=== PATIENT | male | born 1965 | race Caucasian/White ===

== ENCOUNTER 2020-02-20 19:51 | Outpatient (REF) | payer MEDICAID, SELFPAY ==
[2020-02-20 20:44] LABS: BUN 19 mg/dL (7-18); CREATININE 1.06 mg/dL (0.70-1.30); Calcium 9.4 mg/dL (8.5-10.1); Chloride 102 mmol/L (98-107); Glucose 111 mg/dL (74-106); Potassium 4.1 mmol/L (3.5-5.1); Sodium 139 mmol/L (136-145)
== END 2020-02-20 20:11 ==
LOC: NCHCN 19:51
PROVIDERS: PCP Internal Medicine; Visit Provider Internal Medicine
DX: I10 Essential (primary) hypertension (principal)
CPT/HCPCS: 80048

== ENCOUNTER 2020-04-13 13:47 | Outpatient (REF) | payer MEDICAID, SELFPAY ==
[2020-04-13 21:06] LABS: HCT 40.4 % (40.0-50.0); HGB 13.9 g/dL (13.5-17.5); MCH 30.1 pg (27.0-33.0); MCHC 34.4 % (32.0-36.0); MCV 87.4 fL (80-95); MPV 10.1 fL (8.0-11.0); Platelet Count 347 10^3/uL (130-400); RBC 4.62 10^6/uL (4.36-5.78); RDW 12.4 % (11.8-14.1); RDW-SD 39.5 fL; WBC 9.02 10^3/uL (4.4-10.8)
[2020-04-13 21:33] LABS: ALT 27 U/L (16-63); AST 19 U/L (15-37); Albumin 3.9 g/dL (3.4-5.0); Alkaline Phosphatase 78 U/L (46-116); Anion Gap 11.3 mmol/L (3-11); BUN 17 mg/dL (7-18); Bilirubin, Total 0.3 mg/dL (0.2-1.0); CO2 24.7 mmol/L (21.0-32.0); Calcium 9.2 mg/dL (8.5-10.1); Chloride 103 mmol/L (98-107); Glucose 100 mg/dL (74-106); Potassium 4.3 mmol/L (3.5-5.1); Sodium 139 mmol/L (136-145); Total Protein 7.3 g/dL (6.4-8.2)
== END 2020-04-13 13:48 | disposition home or self-care (01) ==
LOC: NCHCN 13:47
PROVIDERS: PCP Internal Medicine; Visit Provider Internal Medicine
DX: C09.9 Malignant neoplasm of tonsil, unspecified (principal); I10 Essential (primary) hypertension
CPT/HCPCS: 80053; 85027

== ENCOUNTER 2020-05-28 02:58 | Outpatient (RCR) | payer MEDICAID, SELFPAY ==
[2020-05-01] MEDS: Normal Saline Flush 10 ML SYR IVP (11:54)
[2020-05-01 11:57] LABS: Abs Immature Grans 0.04 10^3/uL (0.0-0.06); Absolute Basophil Count 0.09 10^3/uL (0.0-0.2); Absolute Eosinophil Count 0.52 10^3/uL (0.0-0.7); Absolute Lymphocyte Count 3.75 10^3/uL (1.2-3.4); Absolute Monocyte Count 0.55 10^3/uL (0.1-0.8); Absolute Neutrophil Count 4.97 10^3/uL (1.2-6.7); Basophils % 0.9; Eosinophils % 5.2; HCT 42.8 % (40.0-50.0); HGB 14.6 g/dL (13.5-17.5); Immature Grans % 0.4; Lymphocytes % 37.8; MCH 30.7 pg (27.0-33.0); MCHC 34.1 % (32.0-36.0); MCV 90.1 fL (80-95); MPV 9.5 fL (8.0-11.0); Monocytes % 5.5; Neutrophils % 50.2; Nucleated RBC 0 %; Platelet Count 357 10^3/uL (130-400); RBC 4.75 10^6/uL (4.36-5.78); RDW 12.3 % (11.8-14.1); RDW-SD 40.1 fL; WBC 9.92 10^3/uL (4.4-10.8)
[2020-05-01 12:11] LABS: ALT 33 U/L (16-63); AST 20 U/L (15-37); Albumin 4.1 g/dL (3.4-5.0); Alkaline Phosphatase 93 U/L (46-116); Anion Gap 7.7 mmol/L (3-11); BUN 18 mg/dL (7-18); Bilirubin, Total 0.3 mg/dL (0.2-1.0); CO2 30.3 mmol/L (21.0-32.0); CREATININE 1.3 mg/dL (0.70-1.30); Calcium 9.2 mg/dL (8.5-10.1); Chloride 101 mmol/L (98-107); Estimated GFR 57.31 (mL/min/1.73m2); Glucose 135 mg/dL (74-106); Potassium 3.6 mmol/L (3.5-5.1); Sodium 139 mmol/L (136-145); Total Protein 8.1 g/dL (6.4-8.2)
[2020-05-07 09:01] LABS: Abs Immature Grans 0.05 10^3/uL (0.0-0.06); Absolute Basophil Count 0.04 10^3/uL (0.0-0.2); Absolute Eosinophil Count 0.12 10^3/uL (0.0-0.7); Absolute Lymphocyte Count 2.64 10^3/uL (1.2-3.4); Absolute Monocyte Count 0.89 10^3/uL (0.1-0.8); Absolute Neutrophil Count 7.41 10^3/uL (1.2-6.7); Basophils % 0.4; Eosinophils % 1.1; HGB 14.8 g/dL (13.5-17.5); Immature Grans % 0.4; Lymphocytes % 23.7; MCH 30.9 pg (27.0-33.0); MCHC 35.2 % (32.0-36.0); MCV 87.7 fL (80-95); MPV 9.6 fL (8.0-11.0); Neutrophils % 66.4; Nucleated RBC 0 %; Platelet Count 374 10^3/uL (130-400); RBC 4.79 10^6/uL (4.36-5.78); RDW 11.7 % (11.8-14.1); WBC 11.16 10^3/uL (4.4-10.8)
[2020-05-07 09:06] LABS: ALT 24 U/L (16-63); AST 15 U/L (15-37); Albumin 3.8 g/dL (3.4-5.0); Alkaline Phosphatase 74 U/L (46-116); Anion Gap 8.4 mmol/L (3-11); BUN 30 mg/dL (7-18); Bilirubin, Total 0.9 mg/dL (0.2-1.0); CO2 29.6 mmol/L (21.0-32.0); CREATININE 1.7 mg/dL (0.70-1.30); Calcium 9.3 mg/dL (8.5-10.1); Chloride 96 mmol/L (98-107); Estimated GFR 42.05 (mL/min/1.73m2); Glucose 152 mg/dL (74-106); Potassium 3.5 mmol/L (3.5-5.1); Sodium 134 mmol/L (136-145); Total Protein 7.8 g/dL (6.4-8.2)
[2020-05-07] MEDS: Normal Saline Flush 10 ML SYR IVP (09:27)
[2020-05-14 09:54] LABS: Abs Immature Grans 0.03 10^3/uL (0.0-0.06); Absolute Basophil Count 0.04 10^3/uL (0.0-0.2); Absolute Eosinophil Count 0.06 10^3/uL (0.0-0.7); Absolute Monocyte Count 0.68 10^3/uL (0.1-0.8); Absolute Neutrophil Count 7.51 10^3/uL (1.2-6.7); Basophils % 0.4; Eosinophils % 0.6; HCT 35.9 % (40.0-50.0); HGB 12.8 g/dL (13.5-17.5); Immature Grans % 0.3; Lymphocytes % 12.6; MCHC 35.7 % (32.0-36.0); MCV 86.9 fL (80-95); MPV 9.4 fL (8.0-11.0); Monocytes % 7.1; Nucleated RBC 0 %; Platelet Count 284 10^3/uL (130-400); RBC 4.13 10^6/uL (4.36-5.78); RDW 11.8 % (11.8-14.1); RDW-SD 37.8 fL; WBC 9.52 10^3/uL (4.4-10.8)
[2020-05-14] MEDS: Normal Saline Flush 10 ML SYR IVP (10:09)
[2020-05-14 11:18] LABS: ALT 29 U/L (16-63); AST 19 U/L (15-37); Albumin 3.6 g/dL (3.4-5.0); Alkaline Phosphatase 69 U/L (46-116); Anion Gap 9.2 mmol/L (3-11); BUN 29 mg/dL (7-18); Bilirubin, Total 0.3 mg/dL (0.2-1.0); CO2 27.8 mmol/L (21.0-32.0); CREATININE 1.3 mg/dL (0.70-1.30); Calcium 9.2 mg/dL (8.5-10.1); Chloride 103 mmol/L (98-107); Estimated GFR 57.31 (mL/min/1.73m2); Glucose 123 mg/dL (74-106); Magnesium 1.8 mg/dL (1.8-2.4); Potassium 3.7 mmol/L (3.5-5.1); Sodium 140 mmol/L (136-145); Total Protein 7.3 g/dL (6.4-8.2)
[2020-05-21] MEDS: Normal Saline Flush 10 ML SYR IVP (09:29)
[2020-05-21 09:35] LABS: Abs Immature Grans 0.02 10^3/uL (0.0-0.06); Absolute Basophil Count 0.03 10^3/uL (0.0-0.2); Absolute Eosinophil Count 0.06 10^3/uL (0.0-0.7); Absolute Monocyte Count 0.43 10^3/uL (0.1-0.8); Absolute Neutrophil Count 4.79 10^3/uL (1.2-6.7); Basophils % 0.5; Eosinophils % 0.9; HCT 33.2 % (40.0-50.0); HGB 11.8 g/dL (13.5-17.5); Immature Grans % 0.3; Lymphocytes % 17.1; MCH 31.1 pg (27.0-33.0); MCHC 35.5 % (32.0-36.0); MCV 87.6 fL (80-95); Monocytes % 6.7; Neutrophils % 74.5; Nucleated RBC 0 %; Platelet Count 248 10^3/uL (130-400); RBC 3.79 10^6/uL (4.36-5.78); RDW 11.6 % (11.8-14.1); RDW-SD 37.1 fL; WBC 6.43 10^3/uL (4.4-10.8)
[2020-05-21 09:55] LABS: ALT 25 U/L (16-63); AST 14 U/L (15-37); Albumin 3.4 g/dL (3.4-5.0); Alkaline Phosphatase 77 U/L (46-116); BUN 27 mg/dL (7-18); Bilirubin, Total 0.4 mg/dL (0.2-1.0); CREATININE 1.3 mg/dL (0.70-1.30); Calcium 8.8 mg/dL (8.5-10.1); Chloride 100 mmol/L (98-107); Estimated GFR 57.31 (mL/min/1.73m2); Glucose 139 mg/dL (74-106); Magnesium 1.7 mg/dL (1.8-2.4); Potassium 3.8 mmol/L (3.5-5.1); Sodium 139 mmol/L (136-145); Total Protein 7.3 g/dL (6.4-8.2)
[2020-05-28 09:30] LABS: Abs Immature Grans 0.01 10^3/uL (0.0-0.06); Absolute Basophil Count 0.02 10^3/uL (0.0-0.2); Absolute Eosinophil Count 0.05 10^3/uL (0.0-0.7); Absolute Lymphocyte Count 0.74 10^3/uL (1.2-3.4); Absolute Monocyte Count 0.33 10^3/uL (0.1-0.8); Absolute Neutrophil Count 2.63 10^3/uL (1.2-6.7); Basophils % 0.5; Eosinophils % 1.3; HCT 29.5 % (40.0-50.0); HGB 10.5 g/dL (13.5-17.5); Immature Grans % 0.3; Lymphocytes % 19.6; MCH 31.5 pg (27.0-33.0); MCHC 35.6 % (32.0-36.0); MCV 88.6 fL (80-95); MPV 8.9 fL (8.0-11.0); Monocytes % 8.7; Neutrophils % 69.6; Nucleated RBC 0 %; Platelet Count 185 10^3/uL (130-400); RBC 3.33 10^6/uL (4.36-5.78); RDW 11.7 % (11.8-14.1); RDW-SD 36.7 fL; WBC 3.78 10^3/uL (4.4-10.8)
[2020-05-28] MEDS: Normal Saline Flush 10 ML SYR IVP (09:39)
[2020-05-28 09:42] LABS: ALT 27 U/L (16-63); AST 17 U/L (15-37); Albumin 3.4 g/dL (3.4-5.0); Alkaline Phosphatase 73 U/L (46-116); Anion Gap 4.4 mmol/L (3-11); BUN 26 mg/dL (7-18); Bilirubin, Total 0.4 mg/dL (0.2-1.0); CO2 32.6 mmol/L (21.0-32.0); CREATININE 1.2 mg/dL (0.70-1.30); Calcium 8.4 mg/dL (8.5-10.1); Chloride 103 mmol/L (98-107); Glucose 116 mg/dL (74-106); Magnesium 1.4 mg/dL (1.8-2.4); Sodium 140 mmol/L (136-145); Total Protein 7.1 g/dL (6.4-8.2)
== END 2020-05-30 23:59 | disposition home or self-care (01) ==
LOC: INF 02:58
PROVIDERS: PCP Internal Medicine; Visit Provider Internal Medicine Hematology & Oncology
DX: C09.9 Malignant neoplasm of tonsil, unspecified (principal)
CPT/HCPCS: 36415; 36591; 80053; 83735; 85025

== ENCOUNTER 2020-06-10 19:08 | Observation (INO) | payer MEDICAID, SELFPAY ==
[2020-06-10 19:15] VITALS: BP 144/80; PULSE 96; RESP 20; TEMP 37.7; O2SAT 99
--- NOTE | 2020-06-10 19:15 | DI.CT_ITS ---
EXAM: CT NECK CHEST ABD PEL W CLINICAL HISTORY: fever, cough, throat pain and vomit TECHNIQUE: IV contrast: Omnipaque 350-125 mL. Oral contrast: None COMPARISON: No exams were available for comparison FINDINGS: CT SCAN SOFT TISSUES NECK WITH IV CONTRAST: Visualized paranasal sinuses are clear. Left frontal sinus is not developed. Visualized lung apices are clear. The tissues of nasopharynx are symmetrical. Uvula is midline. Uniform thickening of the epiglottis is noted which is most probably secondary to radiation treatment. There is no evidence of abnormal m ass in the olvin and hypopharynx. Both submandibular glands appear unremarkable as do the parotid glan ds. Vocal cords are difficult to evaluate as they are abducted. The aryepiglottic folds appear symmetric al. Subglottic airway appears unremarkable. Visualized thyroid gland appears unremarkable. There is no significant lymphadenopathy evident on either side of the neck nor in the supraclavicular regions. IMPRESSION: Thickening of the epiglottis is noted, most probably related to the radiation. There are no distinct masses nor lymphadenopathy in the neck evident. CT CHEST WITH IV CONTRAST : Lungs: There are no pulmonary infiltrates nor pleural effusions. There are no ominous pulmonary nodu les. No new significant focal findings in the trachea and mainstem bronchi. Mediastinum : There is circumferential thickening of the entire wall of the esophagus. This may be r elated to esophagitis versus reflux disease. Requires endoscopy. Distal tip of the Port-A-Cath is i n the lower SVC at the RA junction. There is no hilar nor mediastinal adenopathy. There is no subca rinal adenopathy. Visualized thyroid gland appears unremarkable. There is no axillary adenopathy. There is no supraclavicular adenopathy. Cardiac : Heart size is normal. There is no pericardial effusion. Caliber thoracic aorta is within normal limits. Osseous: There are no lytic osseous lesions identified in the chest. CT SCAN ABDOMEN PELVIS WITH IV CONTRAST : There is a left of center anterior abdominal wall gastric PEG. This is in satisfactory position. No inflammatory change at along its course nor free air. There is no ascites. There are 2 small benign-appearing hypodensities in the right hepatic lobe whic h are either cysts or hemangiomas. Both measure approximately 4 millimeters. There also a few simil ar benign-appearing findings in the left lobe. In addition, there is a cyst in the right hepatic lob e at the gallbladder fossa level which measures 12 x 9 millimeters. There is no obvious gallbladder pathology nor dilatation of the biliary tree, both intra and extrahep atic. The pancreas appears unremarkable. Spleen size is upper normal. There are no splenic lesions. The splenic and portal veins are patent. Right adrenal gland appears unremarkable. However, there is thickening and nodularity in the left ad renal gland including a 1.7 by 1.5 cm hypodense nodule in the left adrenal gland. There are no signi ficant focal findings in the kidneys. No hydronephrosis. No hydroureter. No obvious abnormality in the urinary bladder. The abdominal aorta is not enlarged. There are few small non-specific para-aortic lymph nodes, the l argest of which measures 7 x 5 millimeters located left of the aorta. There is no gross lymphadenopa thy. No intrapelvic nor inguinal adenopathy. In the pelvis the prostate and seminal vesicles appear unremarkable. There is sigmoid diverticulosis . There is subtle streaking around the sigmoid just above the urinary bladder consistent with subtle diverticulitis. There is no abscess. There is no gas within the urinary bladder lumen to suggest f istulous communication. The appendix contains hyperdense material but there is no evidence of acute appendicitis at this time. No bowel obstruction. Osseous: There are bilateral pars interarticularis defects at L5 level with an element of anterolisth esis of L5 upon S1. However, there are no discrete focal lytic nor blastic osseous lesions identifie d. IMPRESSION: 1. No evidence of metastatic nodules nor other pulmonary findings and no pleural effusions nor intrat horacic adenopathy. 2. However, there is diffuse circumferential thickening of the wall of the mediastinum noted which is either related to chronic inflammation or other concerning pathology. Endoscopy is recommended. 3. Gastric PEG is in good position without complications. 4. Multiple small hypodensities in the liver have benign appearance. 5. Mild thickening of the adrenal glands and there is also a 17 x 15 millimeter hypodense nodule in l eft adrenal gland which may represent an incidental adenoma but requires appropriate follow-up. 6. Slightly prominent para-aortic lymph nodes, the largest measuring 12 7 x 5 millimeters located lef t of the aorta. This require follow-up. 7. Sigmoid diverticulosis and there appears to be subtle acute diverticulitis of the sigmoid just abo ve the urinary bladder. There is no abscess. There is no gas within the urinary bladder lumen. The re is no air-gas in the portal venous system. Appropriate follow-up recommended. 8. Bilateral pars defects at L5 with anterolisthesis of L5 upon S1. 9. No discrete ominous focal osseous lesions evident..
--- NOTE | 2020-06-10 19:25 | ED.GENADUL_ITS ---
Discharge Plan Disposition Patient Disposition: [facility] INPATIENT Condition: Fair Discharge Details Clinical Impression: Febrile neutropenia Primary Care Provider: Galindo Mclaughlin ED Provider: Scar Morfin Home Meds and New Rx's Prescriptions: No Action polyethylene glycol 3350 [Miralax] 17 GM powder in packet 255 gm PO for colonoscopy Qty: 1 RF: 0 bisacodyl [Dulcolax (bisacodyl)] 5 MG tablet,delayed release (DR/EC) 5 mg PO as directed Qty: 4 RF: 0 ondansetron HCl 8 mg tablet 8 mg PO PRN PRNRF: 0 lisinopril 20 mg tablet 20 mg PO DAILY RF: 0 prochlorperazine maleate 10 mg tablet 10 mg PO PRN PRNRF: 0 magnesium oxide 400 mg (241.3 mg magnesium) tablet 400 mg PO DAILY RF: 0 Lidocaine Viscous 2 % solution PO PRN PRNRF: 0 gabapentin 100 mg capsule 100 mg PO TID RF: 0 Medical Decision Making <Nicolas Pat MD - Last Filed: 06/10/20 19:29> 54 yo male with 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 Since yesterday has had nausea and vomit as well and solely uses a feeding tube for nutrition. He also notes a productive cough. No headaches, has posterior pharynx pain with midline uvula, no submandibular swelling, and mild upper abdominal tenderness.He is noted to have a temp to 37.7 here. Multiple possible etiologies for fever and given is on chemotherapy with a port for infusions will order labs including blood cultures, and given the abdomen pain, n/v, cough and neck discomfort will obtain ct neck, chest, abdomen pelvis to evaluate for source of fever patient signed out to oncoming provider pending labs, imaging results and dispo Differential Diagnosis Differential Diagnosis: neutropenic fever, intrabdominal abscess, pneumonia, throat infection <Scar Morfin MD - Last Filed: 06/10/20 22:57> Patient signed out to me pending work-up for fever in active chemotherapy patient. Patient seen by Dr. Pat, see his note for initial evaluation and plan. Patient last had chemotherapy Thursday. For the last 24 hours has not been feeling well with fever at home, T-max up to 100.6. Low-grade temp here but noted to be neutropenic with ANC less than 1000. Hemoglobin also slowly dropping over time. Blood cultures are pending. Urinalysis is negative. CT scan of the neck/chest/abdomen/pelvis negative for obvious infectious reason. Questionable mild diverticulitis per radiology but patient without any abdominal pain whatsoever. Per Up-to-Date recommendations low risk febrile neutropenia patient can be treated outpatient after a short observation period. Recommended management is ciprofloxacin and Augmentin outpatient. Patient, therefore, dosed with Cipro and Unasyn here. Discussed with hospitalist for observation overnight. Patient apparently has follow-up with cancer center tomorrow for last dose of chemo which I suspect they will hold. However, patient should be able to follow-up there if stable overnight. Imaging Data Radiologic Study: Imaging: CT Scan Radiologist's impression: COMPARISON: No relevant prior studies available. FINDINGS: Nasopharynx: Unremarkable. Oropharynx: Unremarkable. No significant tonsillar enlargement. Hypopharynx: Unremarkable. Larynx: Unremarkable. Normal epiglottis. Retropharyngeal space: Unremarkable. Submandibular/Parotid glands: Normal. Glands are normal in size. Thyroid: Normal. No enlarged or calcified nodules. Lymph nodes: Scattered bilateral cervical lymph nodes, not pathologic by size criteria. No lymph nodes of pathologic dimensions in the neck. Trachea: Transverse narrowing of the trachea is a nonspecific finding. No tracheal wall thickening or mass. Lungs: No consolidation. Esophagus: Mural thickening of the imaged upper thoracic esophagus. Bones/joints: Afxa-[id number]-[id number] multilevel cervical spondylosis. No acute fracture. Soft tissues: Superior right chest wall subcutaneous medication port with distal tip terminating inferior to field of view. No significant soft tissue swelling. IMPRESSION: No acute CT finding of the neck. PROCEDURE INFORMATION: Exam: CT Chest With Contrast; Diagnostic Exam date and time: 06/10/2020 7:25 PM Age: 54 years old Clinical indication: Fever and vomiting; Other: Throat cancer dx 3 months ago; Patient HX: Known throat cancer, patient on radiation and chemo. Fever cough, throat pain and vomiting. TECHNIQUE: Imaging protocol: Diagnostic computed tomography of the chest with contrast. Radiation optimization: All CT scans at this facility use at least one of these dose optimization techniques: automated exposure control; mA and/or kV adjustment per patient size (includes targeted exams where dose is matched to clinical indication); or iterative reconstruction. Contrast material: OMNIPAQUE 350; Contrast volume: 125 ml; Contrast route: INTRA-ARTICULAR (ARTHROGRAM); COMPARISON: No relevant prior studies available. FINDINGS: Tubes, catheters and devices: Superior right chest wall subcutaneous medication port with distal tip terminating near the superior cavoatrial junction. Lungs: Few right apical bulla versus mild paraseptal emphysematous change. No pulmonary consolidation or mass. Pleural spaces: No pneumothorax. No pleural effusion. Heart: Unremarkable. No cardiomegaly. No pericardial effusion. Mediastinal space: Diffuse mural thickening of the esophagus with minute hiatal hernia. Transverse narrowing of the trachea is a nonspecific finding. No tracheal wall thickening or mass. Aorta: Unremarkable. No aortic aneurysm. Lymph nodes: Unremarkable. No enlarged lymph nodes. Bones/joints: Unremarkable. No acute fracture. Soft tissues: Unremarkable. IMPRESSION: 1. Diffuse mural thickening of the esophagus. Correlate clinically for symptoms of esophagitis and/or reflux versus malignancy. 2. Otherwise no acute CT finding of the thorax. PROCEDURE INFORMATION: Exam: CT Abdomen And Pelvis With Contrast Exam date and time: 06/10/2020 7:25 PM Age: 54 years old Clinical indication: Fever and vomiting; Other: Throat cancer dx 3 months ago; Patient HX: Known throat cancer, patient on radiation and chemo. Fever cough, throat pain and vomiting. TECHNIQUE: Imaging protocol: Computed tomography of the abdomen and pelvis with contrast. Radiation optimization: All CT scans at this facility use at least one of these dose optimization techniques: automated exposure control; mA and/or kV adjustment per patient size (includes targeted exams where dose is matched to clinical indication); or iterative reconstruction. Contrast material: OMNIPAQUE 350; Contrast route: INTRA-ARTICULAR (ARTHROGRAM); COMPARISON: No relevant prior studies available. FINDINGS: Tubes, catheters and devices: Percutaneous gastrostomy tube is within the left upper quadrant terminating in the stomach. Lungs: Lung bases are clear. Liver: There are few scattered subcentimeter hypodensities within the liver which are too small to characterize. There is generally ovoid 1.2 cm hypodensity within the inferior right hepatic lobe with simple fluid attenuation consistent with benign process. Gallbladder and bile ducts: Unremarkable. No calcified stones. No ductal dilation. Pancreas: No mass. No pancreatic ductal dilation or peripancreatic inflammatory stranding. Spleen: No splenomegaly. No mass. Adrenal glands: There is thickening of the bilateral adrenal glands, left greater than right, without discrete nodule or mass. Kidneys and ureters: No mass. No hydronephrosis. Ureters are normal in course and caliber. Stomach and bowel: There is diffuse mural thickening of the stomach, however underdistended limiting evaluation. There is mild diffuse mural/fold thickening of the proximal to mid small bowel, however incompletely distended limiting evaluation. There is [id number] sigmoid diverticulosis. There is focal mural thickening of the sigmoid colon with focal pericolonic inflammatory stranding (series 4, image 113; sagittal image 79). There is mild colonic stool burden. No bowel obstruction. Appendix: Within normal limits. Intraperitoneal space: No free air. No significant fluid collection. Vasculature: There are mild scattered atherosclerotic calcifications of the abdominal aorta and its major branches, no abdominal aortic aneurysm. Lymph nodes: No pathologically enlarged lymph nodes. Urinary bladder: Bladder is incompletely distended mildly limiting evaluation with mild diffuse nonfocal bladder wall thickening. Reproductive: Unremarkable as visualized. 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 There is moderate to severe degenerative disc disease at L5-S1. No acute fracture. Soft tissues: No focal abnormality. IMPRESSION: 1. [id number] sigmoid diverticulosis with mild focal sigmoid mural thickening with associated pericolonic inflammatory stranding. Correlate clinically with symptoms for acute, uncomplicated sigmoid diverticulitis. 2. Mild mural thickening of the stomach and proximal to mid small bowel, however incompletely distended limiting evaluation. Could represent changes of underdistention versus acute gastroenteritis. Correlate with symptoms. 3. Mild nonfocal bladder wall thickening is favored to represent changes of underdistention, however correlate clinically to exclude other causes such as cystitis. Dictated and Authenticated by: Raghu Dukes MD. Ordering:LINA Valenzuela MD Lab Data Lab results reviewed: Yes I reviewed the patient's lab results. Lab results narrative: Laboratories significant for decreased white count and neutropenia with an ANC less than 1000. Hemoglobin low at 8.1. This has slowly been dropping since April, presumably from chemo as no report of bleeding or black stool. Platelets are normal. Chemistries are unremarkable. Urine is negative for infection. HPI <Nicolas Pat MD - Last Filed: 06/10/20 19:29> General Mode of arrival: ambulatory . Date/Time Provider Initiated Documentation: 06/10/20 19:10 . Limitations to Documentation: no limitations . Information obtained by: patient . History of Present Illness 54 year old M presents to the emergency department with the chief complaint of fever, described as moderate, Patient started experiencing this day(s) (1) and it has been constant. No relieving factors improve symptom(s), No exacerbating factors reported . Patient notes cough. Related Data Home Medications Medication Instructions Recorded Confirmed bisacodyl [Dulcolax] 5 mg PO as directed #4 tab 12/03/15 06/10/20 polyethylene glycol 3350 [Miralax] 255 gm PO for colonoscopy #1 gm 12/03/15 06/10/20 gabapentin 100 mg PO TID 06/10/20 06/10/20 lidocaine HCl [Lidocaine Viscous] PO PRN PRN 06/10/20 lisinopril 20 mg PO DAILY 06/10/20 06/10/20 magnesium oxide 400 mg PO DAILY 06/10/20 06/10/20 ondansetron HCl 8 mg PO PRN PRN 06/10/20 06/10/20 prochlorperazine maleate 10 mg PO PRN PRN 06/10/20 06/10/20 Allergies Allergy/AdvReac Type Severity Reaction Status Date / Time No Known Allergies Allergy Unverified 06/10/20 19:17 General Stated Complaint: Fever BULMARO: 3 Review of Systems <Nicolas Pat MD - Last Filed: 06/10/20 19:29> All systems reviewed & are unremarkable except as noted in HPI and below Constitutional Constitutional: Denies chills Cardiovascular Cardiovascular: Denies chest pain and Denies dyspnea Respiratory Respiratory: Denies dyspnea Gastrointestinal Gastrointestinal: Denies nausea and Denies vomiting Genitourinary Genitourinary: Denies dysuria Musculoskeletal Musculoskeletal: Denies joint swelling Integumentary/Breasts Skin/Breast: Denies rash PFSH <Nicolas Pat MD - Last Filed: 06/10/20 19:29> Family History Mother Colon cancer Diabetes Father No problems noted. Maternal Uncle Colon cancer Social History Smoking/Tobacco Use Status: Former Tobacco Use Smoking risk assessment performed?: Yes Alcohol Intake: never Drug use: Occasionally Substance use type: marijuana Details: last use 4 weeks ago Do you feel safe at home: Yes Do you feel safe in your relationship?: Yes Exam <Nicolas Pat MD - Last Filed: 06/10/20 19:29> Const General: no acute distress Orientation: alert HENSC Head: normal to inspection Ears: external ears normal General nose exam: external nose normal Mouth: lip normal Eyes General: appearance normal, both eyes and all related structures Neck Neck: normal visual inspection Resp Effort & Inspection: normal respiratory effort and able to speak in complete sentences Cardio Rate: regular rate Skin General skin exam: no rashes or lesions noted Neuro General: patient alert and patient oriented x3 Extrem General: normal to inspection Psych Mental Status: mental status grossly normal Course <Nicolas Pat MD - Last Filed: 06/10/20 19:29> Vital Signs Vital signs: Vital Signs Temperature 37.7 C H 06/10/20 19:15 Pulse 96 H 06/10/20 19:15 Respiratory Rate 20 06/10/20 19:15 Blood Pressure 144/80 H 06/10/20 19:15 Pulse Oximetry 99 06/10/20 19:15 Temperature 37.7 C H 06/10/20 19:15 Temperature Source Oral 06/10/20 19:15 Pulse 96 H 06/10/20 19:15 Respiratory Rate 20 06/10/20 19:15 Respiratory Effort Non-Labored 06/10/20 19:22 Blood Pressure 144/80 H 06/10/20 19:15 Blood Pressure Position Sitting 06/10/20 19:15 Pulse Oximetry 99 06/10/20 19:15 Oxygen Delivery Method Room Air 06/10/20 19:15 Oxygen Flow Rate 0 06/10/20 19:15 Sign Out <Nicolas Pat MD - Last Filed: 06/10/20 19:29> Sign Out Data: Sign Out Comment: chemotherapy for tonsil cancer per patient, throat pain, cough, abdomen pain and is tube fed, pending labs and imaging Last updated by Nicolas Pat MD at 06/10/20 19:30
[2020-06-10 20:27] LABS: Source Nasal/Nares
[2020-06-10] MEDS: Heparin 500 UNITS/5 ML SYRINGE (20:28)
[2020-06-10] MEDS: Normal Saline 1,000 ML 1000 ML IV (20:28)
[2020-06-10] MEDS: Normal Saline-STERILE FIELD 0.9% 10 ML SYR (20:29)
[2020-06-10 20:30] LABS: Lactate 0.6 mmol/L (0.6-1.4)
[2020-06-10 20:35] LABS: Abs Immature Grans 0.01 10^3/uL (0.0-0.06); Absolute Basophil Count 0.01 10^3/uL (0.0-0.2); Absolute Eosinophil Count 0.01 10^3/uL (0.0-0.7); Absolute Lymphocyte Count 0.42 10^3/uL (1.2-3.4); Absolute Monocyte Count 0.32 10^3/uL (0.1-0.8); Absolute Neutrophil Count 0.93 10^3/uL (1.2-6.7); Basophils % 0.6; Eosinophils % 0.6; HCT 23.2 % (40.0-50.0); HGB 8.1 g/dL (13.5-17.5); Immature Grans % 0.6; Lymphocytes % 24.7; MCH 31.8 pg (27.0-33.0); MCHC 34.9 % (32.0-36.0); Monocytes % 18.8; Neutrophils % 54.7; Nucleated RBC 0 %; Platelet Count 251 10^3/uL (130-400); RBC 2.55 10^6/uL (4.36-5.78); RDW 12.3 % (11.8-14.1); RDW-SD 37.6 fL
[2020-06-10 20:46] LABS: Bilirubin Negative (Negative); Blood Negative (Negative); Clarity Clear (Clear); Glucose Negative (Negative); Ketones Negative (Negative); Leukocyte Esterase Negative (Negative); Nitrite Negative (Negative); Urobilinogen 0.2 EU/dL (Up TO 0.2); pH 7.5 (5-8)
[2020-06-10 20:52] LABS: Epithelial Cells Rare HPF (Negative); RBC 0-2 HPF (0-2); WBC 0-2 HPF (0-5)
[2020-06-10 20:53] LABS: Bacteria Negative HPF (Negative); C & S Indicated? C&S Done As Ordered; Casts Negative LPF (Negative); Crystals Negative HPF (Negative); Mucus Negative (Negative); Other Cells Negative (Negative)
[2020-06-10 20:53] LABS: INR 1.1 (0.9-1.1); PTT Activated 23.9 sec (21.0-27.5); Prothrombin Time 10.7 sec (9.3-11.0)
[2020-06-10 20:54] LABS: ALT 17 U/L (16-63); AST 13 U/L (15-37); Albumin 3.2 g/dL (3.4-5.0); Alkaline Phosphatase 69 U/L (46-116); Anion Gap 9.2 mmol/L (3-11); BUN 29 mg/dL (7-18); Bilirubin, Direct 0.1 mg/dL (0.0-0.2); Bilirubin, Total 0.4 mg/dL (0.2-1.0); CO2 29.8 mmol/L (21.0-32.0); CREATININE 1.1 mg/dL (0.70-1.30); Chloride 102 mmol/L (98-107); Glucose 104 mg/dL (74-106); Magnesium 1.7 mg/dL (1.8-2.4); Potassium 3.9 mmol/L (3.5-5.1); Sodium 141 mmol/L (136-145); Total Protein 7.1 g/dL (6.4-8.2)
[2020-06-10 21:03] LABS: Diff Comment Agrees w/ Instrument; Microcytosis 1+
[2020-06-10 21:04] LABS: COVID-19 PCR Negative (Negative)
[2020-06-10] MEDS: Normal Saline - Diluent 50 ML VIAL IV (21:13)
[2020-06-10] MEDS: Omnipaque 350 MG/ML 100 ML BTL IJ (21:13)
[2020-06-10] MEDS: AMPICILLIN/SULBACTAM 3 GM in Normal Saline 100 ML IVPB (21:35)
[2020-06-10] MEDS: CIPROFLOXACIN 400 MG/200 ML BAG 200 MG IVPB (22:20)
--- NOTE | 2020-06-10 22:35 | DI.VRAD_ITS ---
PROCEDURE INFORMATION: Exam: CT Neck With Contrast Exam date and time: 06/10/2020 7:25 PM Age: 54 years old Clinical indication: Fever and vomiting; Other: Throat cancer dx 3 months ago; Patient HX: Known throat cancer, patient on radiation and chemo. Fever cough, throat pain and vomiting. TECHNIQUE: Imaging protocol: Computed tomography images of the neck with contrast. Radiation optimization: All CT scans at this facility use at least one of these dose optimization techniques: automated exposure control; mA and/or kV adjustment per patient size (includes targeted exams where dose is matched to clinical indication); or iterative reconstruction. Contrast material: OMNIPAQUE 350; Contrast route: INTRA-ARTICULAR (ARTHROGRAM); COMPARISON: No relevant prior studies available. FINDINGS: Nasopharynx: Unremarkable. Oropharynx: Unremarkable. No significant tonsillar enlargement. Hypopharynx: Unremarkable. Larynx: Unremarkable. Normal epiglottis. Retropharyngeal space: Unremarkable. Submandibular/Parotid glands: Normal. Glands are normal in size. Thyroid: Normal. No enlarged or calcified nodules. Lymph nodes: Scattered bilateral cervical lymph nodes, not pathologic by size criteria. No lymph nodes of pathologic dimensions in the neck. Trachea: Transverse narrowing of the trachea is a nonspecific finding. No tracheal wall thickening or mass. Lungs: No consolidation. Esophagus: Mural thickening of the imaged upper thoracic esophagus. Bones/joints: [id number] multilevel cervical spondylosis. No acute fracture. Soft tissues: Superior right chest wall subcutaneous medication port with distal tip terminating inferior to field of view. No significant soft tissue swelling. IMPRESSION: No acute CT finding of the neck. PROCEDURE INFORMATION: Exam: CT Chest With Contrast; Diagnostic Exam date and time: 06/10/2020 7:25 PM Age: 54 years old Clinical indication: Fever and vomiting; Other: Throat cancer dx 3 months ago; Patient HX: Known throat cancer, patient on radiation and chemo. Fever cough, throat pain and vomiting. TECHNIQUE: Imaging protocol: Diagnostic computed tomography of the chest with contrast. Radiation optimization: All CT scans at this facility use at least one of these dose optimization techniques: automated exposure control; mA and/or kV adjustment per patient size (includes targeted exams where dose is matched to clinical indication); or iterative reconstruction. Contrast material: OMNIPAQUE 350; Contrast volume: 125 ml; Contrast route: INTRA-ARTICULAR (ARTHROGRAM); COMPARISON: No relevant prior studies available. FINDINGS: Tubes, catheters and devices: Superior right chest wall subcutaneous medication port with distal tip terminating near the superior cavoatrial junction. Lungs: Few right apical bulla versus mild paraseptal emphysematous change. No pulmonary consolidation or mass. Pleural spaces: No pneumothorax. No pleural effusion. Heart: Unremarkable. No cardiomegaly. No pericardial effusion. Mediastinal space: Diffuse mural thickening of the esophagus with minute hiatal hernia. Transverse narrowing of the trachea is a nonspecific finding. No tracheal wall thickening or mass. Aorta: Unremarkable. No aortic aneurysm. Lymph nodes: Unremarkable. No enlarged lymph nodes. Bones/joints: Unremarkable. No acute fracture. Soft tissues: Unremarkable. IMPRESSION: 1. Diffuse mural thickening of the esophagus. Correlate clinically for symptoms of esophagitis and/or reflux versus malignancy. 2. Otherwise no acute CT finding of the thorax. PROCEDURE INFORMATION: Exam: CT Abdomen And Pelvis With Contrast Exam date and time: 06/10/2020 7:25 PM Age: 54 years old Clinical indication: Fever and vomiting; Other: Throat cancer dx 3 months ago; Patient HX: Known throat cancer, patient on radiation and chemo. Fever cough, throat pain and vomiting. TECHNIQUE: Imaging protocol: Computed tomography of the abdomen and pelvis with contrast. Radiation optimization: All CT scans at this facility use at least one of these dose optimization techniques: automated exposure control; mA and/or kV adjustment per patient size (includes targeted exams where dose is matched to clinical indication); or iterative reconstruction. Contrast material: OMNIPAQUE 350; Contrast route: INTRA-ARTICULAR (ARTHROGRAM); COMPARISON: No relevant prior studies available. FINDINGS: Tubes, catheters and devices: Percutaneous gastrostomy tube is within the left upper quadrant terminating in the stomach. Lungs: Lung bases are clear. Liver: There are few scattered subcentimeter hypodensities within the liver which are too small to characterize. There is generally ovoid 1.2 cm hypodensity within the inferior right hepatic lobe with simple fluid attenuation consistent with benign process. Gallbladder and bile ducts: Unremarkable. No calcified stones. No ductal dilation. Pancreas: No mass. No pancreatic ductal dilation or peripancreatic inflammatory stranding. Spleen: No splenomegaly. No mass. Adrenal glands: There is thickening of the bilateral adrenal glands, left greater than right, without discrete nodule or mass. Kidneys and ureters: No mass. No hydronephrosis. Ureters are normal in course and caliber. Stomach and bowel: There is diffuse mural thickening of the stomach, however underdistended limiting evaluation. There is mild diffuse mural/fold thickening of the proximal to mid small bowel, however incompletely distended limiting evaluation. There is vlzo-[id number] sigmoid diverticulosis. There is focal mural thickening of the sigmoid colon with focal pericolonic inflammatory stranding (series 4, image 113; sagittal image 79). There is mild colonic stool burden. No bowel obstruction. Appendix: Within normal limits. Intraperitoneal space: No free air. No significant fluid collection. Vasculature: There are mild scattered atherosclerotic calcifications of the abdominal aorta and its major branches, no abdominal aortic aneurysm. Lymph nodes: No pathologically enlarged lymph nodes. Urinary bladder: Bladder is incompletely distended mildly limiting evaluation with mild diffuse nonfocal bladder wall thickening. Reproductive: Unremarkable as visualized. 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 There is moderate to severe degenerative disc disease at L5-S1. No acute fracture. Soft tissues: No focal abnormality. IMPRESSION: 1. Pnmu-[id number] sigmoid diverticulosis with mild focal sigmoid mural thickening with associated pericolonic inflammatory stranding. Correlate clinically with symptoms for acute, uncomplicated sigmoid diverticulitis. 2. Mild mural thickening of the stomach and proximal to mid small bowel, however incompletely distended limiting evaluation. Could represent changes of underdistention versus acute gastroenteritis. Correlate with symptoms. 3. Mild nonfocal bladder wall thickening is favored to represent changes of underdistention, however correlate clinically to exclude other causes such as cystitis. Dictated and Authenticated by: Rahgu Dukes MD. Ordering:LINA Valenzuela MD
--- NOTE | 2020-06-10 23:05 | HPE_ITS ---
Date of service: 06/10/20 Time of Service: 23:06 Assessment and Plan Assessment and plan (1) Febrile neutropenia: Status: Acute Assessment and plan: Neutropenic fever, no source identified. Will convert to empiric Cefipime pending cx results. 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 Here with one day of fever. In ER w/u of note for ANC 930, CT neck, chest and abd of brady only for possible mild sig diverticulitis (patient w/o abd pain), neg urine and neg COVID. Patient given doses of Unasyn and Cipro on presumption of possible brief stay converting to outpatient therapy. Is admitted for further management. States he had single episode of vomiting yesterday; has chronic cough (from XRT), no change. Mainly just feels tired. Review of Systems All systems reviewed & are unremarkable except as noted in HPI and below PFSH Family History Mother Colon cancer Diabetes Father No problems noted. Maternal Uncle Colon cancer Social History Smoking/Tobacco Use Status: Former Tobacco Use Smoking risk assessment performed?: Yes Alcohol Intake: never Drug use: Occasionally Substance use type: marijuana Details: last use 4 weeks ago Do you feel safe at home: Yes Do you feel safe in your relationship?: Yes Meds Home Medications and Allergies Allergies Allergy/AdvReac Type Severity Reaction Status Date / Time No Known Allergies Allergy Unverified 06/10/20 19:17 Home Medications Medication Instructions Recorded Confirmed Type bisacodyl [Dulcolax] 5 mg PO as directed #4 tab 12/03/15 06/10/20 History polyethylene glycol 3350 [Miralax] 255 gm PO for colonoscopy #1 gm 12/03/15 06/10/20 History gabapentin 100 mg PO TID 06/10/20 06/10/20 History lidocaine HCl [Lidocaine Viscous] PO PRN PRN 06/10/20 History lisinopril 20 mg PO DAILY 06/10/20 06/10/20 History magnesium oxide 400 mg PO DAILY 06/10/20 06/10/20 History ondansetron HCl 8 mg PO PRN PRN 06/10/20 06/10/20 History prochlorperazine maleate 10 mg PO PRN PRN 06/10/20 06/10/20 History Exam Narrative Exam Narrative: 144/80, 96, 37.7, 20, 99% RA. HEENT palatal erythema w/o exudate; neck supple; lungs clear but diminished; heart RRR; port right upper chest w/o redness or D/C; abdomen soft and NT; extremities w/o edema; no rash Results Labs Result diagrams: 06/10/20 20:10 06/10/20 20:10 Labs: Laboratory Results - last 24 hr 06/10/20 06/10/20 06/10/20 19:55 20:10 20:10 WBC RBC Hgb Hct MCV MCH MCHC RDW Plt Count MPV Immature Gran % Neutrophils % Lymphocytes % Monocytes % Eosinophils % Basophils % Nucleated RBC % Absolute Neutrophils Absolute Lymphocytes Absolute Monocytes Absolute Eosinophils Absolute Basophils RBC Morphology Microcytosis PT INR APTT VBG Lactate 0.6 Sodium 141 Potassium 3.9 Chloride 102 Carbon Dioxide 29.8 Anion Gap 9.2 BUN 29 H Creatinine 1.1 Estimated GFR/1.73 m2 >= 60.00 Glucose 104 Calcium 9.0 Magnesium 1.7 L Total Bilirubin 0.4 Conjugated Bilirubin 0.1 AST 13 L ALT 17 Alkaline Phosphatase 69 Total Protein 7.1 Albumin 3.2 L Urine Color Urine Clarity Urine pH Ur Specific [place] Urine Protein Urine Ketones Urine Blood Urine Nitrite Urine Bilirubin Urine Urobilinogen Ur Leukocyte Esterase Urine RBC Urine WBC Ur Epithelial Cells Urine Crystals Urine Bacteria Urine Casts Urine Mucus Urine Other Ur Culture Indicated? Urine Glucose COVID-19 Source Nasal/nares SARS-CoV-2 (PCR) Negative 06/10/20 06/10/20 06/10/20 20:10 20:10 20:30 WBC 1.70 L* RBC 2.55 L Hgb 8.1 L Hct 23.2 L MCV 91.0 MCH 31.8 MCHC 34.9 RDW 12.3 Plt Count 251 MPV 9.0 Immature Gran % 0.6 Neutrophils % 54.7 Lymphocytes % 24.7 Monocytes % 18.8 Eosinophils % 0.6 Basophils % 0.6 Nucleated RBC % 0 Absolute Neutrophils 0.93 L Absolute Lymphocytes 0.42 L Absolute Monocytes 0.32 Absolute Eosinophils 0.01 Absolute Basophils 0.01 RBC Morphology See below Microcytosis 1+ PT 10.7 INR 1.1 APTT 23.9 VBG Lactate Sodium Potassium Chloride Carbon Dioxide Anion Gap BUN Creatinine Estimated GFR/1.73 m2 Glucose Calcium Magnesium Total Bilirubin Conjugated Bilirubin AST ALT Alkaline Phosphatase Total Protein Albumin Urine Color Yellow Urine Clarity Clear Urine pH 7.5 Ur Specific [place] 1.020 Urine Protein 30 H Urine Ketones Negative Urine Blood Negative Urine Nitrite Negative Urine Bilirubin Negative Urine Urobilinogen 0.2 Ur Leukocyte Esterase Negative Urine RBC 0-2 Urine WBC 0-2 Ur Epithelial Cells Rare Urine Crystals Negative Urine Bacteria Negative Urine Casts Negative Urine Mucus Negative Urine Other Negative Ur Culture Indicated? C&s done as ordered Urine Glucose Negative COVID-19 Source SARS-CoV-2 (PCR) Last Vital Signs Temp 37.7 C H 06/10/20 19:15 Pulse 96 H 06/10/20 19:15 Resp 20 06/10/20 19:15 BP 144/80 H 06/10/20 19:15 Pulse Ox 99 06/10/20 19:15 COVID-19 Screening Have you, or household traveled for leisure in last 14 days?: No Had IN PERSON contact w/suspected or confirmed C-19 person: No
[2020-06-10 23:24] VITALS: BP 134/79; PULSE 94; RESP 16; TEMP 36.7; O2SAT 97
[2020-06-10] MEDS: ACETAMINOPHEN 1,000 MG/100 ML BTL 400 MG IVPB (23:33)
[2020-06-11] MEDS: Ondansetron 4 MG/2 ML VIAL (00:08)
[2020-06-11 00:37] VITALS: BP 119/75; PULSE 87; RESP 16; TEMP 36.9; O2SAT 98
[2020-06-11] MEDS: Lactated Ringers 1,000 ML 100 ML IV (01:53)
[2020-06-11] MEDS: CEFEPIME 2 GM in Normal Saline 100 ML IVPB (05:57)
[2020-06-11 07:02] LABS: Absolute Basophil Count 0.01 10^3/uL (0.0-0.2); Absolute Eosinophil Count 0.01 10^3/uL (0.0-0.7); Absolute Lymphocyte Count 0.43 10^3/uL (1.2-3.4); Absolute Monocyte Count 0.33 10^3/uL (0.1-0.8); Absolute Neutrophil Count 0.81 10^3/uL (1.2-6.7); Basophils % 0.6; Eosinophils % 0.6; HCT 21.9 % (40.0-50.0); HGB 7.6 g/dL (13.5-17.5); MCH 31.7 pg (27.0-33.0); MCHC 34.7 % (32.0-36.0); MCV 91.3 fL (80-95); MPV 8.8 fL (8.0-11.0); Monocytes % 20.8; Nucleated RBC 0 %; Platelet Count 224 10^3/uL (130-400); RDW 12.5 % (11.8-14.1); RDW-SD 38.7 fL
[2020-06-11 07:40] VITALS: BP 129/70; PULSE 90; RESP 18; TEMP 37; O2SAT 99
[2020-06-11 07:43] LABS: WBC 1.59 10^3/uL (4.4-10.8)
[2020-06-11] MEDS: Gabapentin 100 MG CAP PO (07:45)
[2020-06-11] MEDS: MAGNESIUM SULFATE 2 GM/50 ML BAG IVPB (09:42)
--- NOTE | 2020-06-11 09:44 | PDOC.CMIN ---
- If Service Date Differs Date of service: 06/11/20 Time of Service: 09:44 Care Management Initial Assess REASON FOR HOSPITALIZATION:: febrile neutropenia PAST MEDICAL HISTORY/PAST SURGICAL HISTORY:: All systems reviewed & are unremarkable except as noted in HPI and below PREVIOUS FUNCTIONAL STATUS/SOCIAL/FAMILY SUPPORTS:: Vasyl lives alone in [place], [place] . He is divcorced and has 3 children, all local. He describes his family as very close and supportive. Vasyl also has parents and siblings that have been very supportive, taking turns to come and spend time with him, since he was diagnosed with tonsillar cancer in December. 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 CURRENT FUNCTIONAL STATUS:: Vasyl was sitting up in bed when CM met with him. He stated that his throat was really sore but that otherwise he was feeling Ok. Vasyl was unexpectedly discharged early this afternoon and needed assistance with transportation. CM was able to connect him with his sister who will take him to the [facility] for a 3pm radiation therapy treatment. ADVANCE DIRECTIVES:: None on file Has patient been provided with info about the portal/API?: Yes Did the patient sign up for the portal?: No CODE STATUS:: Full Code INSURANCE COVERAGE / FINANCIAL ISSUES:: Medicaid CURRENT HOME/COMMUNITY SERVICES/EQUIPMENT:: none PRIMARY CARE PHYSICIAN:: Galindo Mclaughlin POTENTIAL DISCHARGE NEEDS:: Follow up with Oncology, PCP and discharge plan of care PATIENT/FAMILY EDUCATION NEEDS:: Review of discharge instructions, follow up plan, limitations, Ask Me Three TRANSPORTATION:: via private vehicle with sister Susie PLAN:: Vasyl will be discharged home with no new services. He will follow up with his Oncology Team as well as his PCP and discharge plan of care. Vasyl will transport with family vis private vehicle.
--- NOTE | 2020-06-11 10:47 | DSE_ITS ---
Date of service: 06/11/20 Time of Service: 10:47 DS: Diagnosis Discharge Diagnosis (1) Febrile neutropenia: Status: Acute Discharge Plan Disposition Patient Disposition: HOME Condition: Fair Discharge Details Reason For Visit: NEUTROPENIC FEVER Admit Date/Time: 06/10/20 23:15 Admit Provider: Hola Fink Attending Provider: Hola Fink Primary Care Provider: Galindo Mclaughlin Hospital Course Hospital Course: This is a 54 year old male with history of reported tonsil cancer undergoing chemotherapy and radiation, last received chemotherapy this past Thursday, who presented to the ED with fever of 100.6. Prior day had nausea and vomiting. He also notes a productive cough. No headaches, has posterior pharynx pain with midline uvula, no submandibular swelling, and mild upper abdominal tenderness. He is noted to have a temp to 37.7 here. Multiple possible etiologies for fever and given is on chemotherapy with a port for infusions will order labs including blood cultures, and given the abdomen pain, n/v, cough and neck discomfort will obtain ct neck, chest, abdomen pelvis to evaluate for source of fever. Blood cultures are still pending. Urinalysis is negative. CT scan of the neck/chest/abdomen/pelvis negative for obvious infectious reason. Questionable mild diverticulitis per radiology but patient without any abdominal pain whatsoever. Per Up-to-Date recommendations low risk febrile neutropenia patient can be treated outpatient after a short observation period so he was referred to observation to med/surg. he also received cefepime. He remained hemodynamically stable, afebrile and feels better requesting discharge. His case was discussed with triage at [facility] and recommendations are to continue ciprofloxacin and Augmentin outpatient and he can discharge to his radiation appointment scheduled today. further outpatient follow up per oncology team. discharge discussed with Dr Salazar. Home Meds and New Rx's Prescriptions: New ciprofloxacin [Cipro] 500 mg/5 mL suspension,microcapsule recon 500 mg PO BID Qty: 100 RF: 0 amoxicillin-pot clavulanate [Augmentin ES-600] 600-42.9 mg/5 mL suspension for reconstitution 5 ml PO BID Qty: 125 RF: 0 Continued polyethylene glycol 3350 [Miralax] 17 GM powder in packet 255 gm PO for colonoscopy Qty: 1 RF: 0 bisacodyl [Dulcolax (bisacodyl)] 5 MG tablet,delayed release (DR/EC) 5 mg PO as directed Qty: 4 RF: 0 ondansetron HCl 8 mg tablet 8 mg PO PRN PRNRF: 0 lisinopril 20 mg tablet 20 mg PO DAILY RF: 0 prochlorperazine maleate 10 mg tablet 10 mg PO PRN PRNRF: 0 magnesium oxide 400 mg (241.3 mg magnesium) tablet 400 mg PO DAILY RF: 0 Lidocaine Viscous 2 % solution PO PRN PRNRF: 0 gabapentin 100 mg capsule 100 mg PO TID RF: 0 Discharge Instructions Instructions: Neutropenic Precautions (GEN) Additional Instructions: present to [facility] for Radiation today at 3 pm Stand Alone Forms: Nursing Discharge Form Referrals: [facility] [Provider Group] (follow up as scheduled. ) Activity:: Activity as Tolerated Equipment/Supplies:: No Equipment Needed Diet:: tube feedings Discharge Orders Discharge Orders: Discharge Order (Routine); Ordered 06/11/20 Ordered By: Apryl Moreno Discharge Data Discharge Date/Time-TO BE ENTERED AT DEPARTURE: 06/11/20 14:28 DS: Summary Time Spent with Patient providing and/or coordinating discharge services: Less than 30 minutes Status at Discharge Functional status at discharge: independent ambulation Overall status at discharge: patient is progressing back to baseline Mental Status: mental status grossly normal Speech and Movement: speech and movement normal Mood: congruent mood Affect: normal affect Exam Const General: no acute distress Orientation: alert HENMT Head: normal to inspection Ears: external ears normal General nose exam: external nose normal Mouth: lip normal Eyes General: appearance normal, both eyes and all related structures Neck Neck: other (reddned discoloration from radiation therapy) Resp Effort & Inspection: normal respiratory effort and able to speak in complete sentences Cardio Rate: regular rate Skin General skin exam: no rashes or lesions noted Neuro General: patient alert and patient oriented x3 Extrem General: normal to inspection Psych Mental Status: mental status grossly normal Speech and Movement: speech and movement normal Mood: congruent mood Affect: normal affect DS: Data Vitals/I&O Vitals and I&O: Vital Signs Temperature 37 C 06/11/20 07:40 Temperature Source Tympanic 06/11/20 07:40 Pulse 90 06/11/20 07:40 Pulse Rhythm Regular 06/11/20 00:37 Respiratory Rate 18 06/11/20 07:40 Respiratory Effort Non-Labored 06/11/20 00:37 Respiratory Depth Normal 06/11/20 00:37 Respiratory Pattern Normal 06/11/20 00:37 Blood Pressure 129/70 06/11/20 07:40 Blood Pressure Position Sitting 06/10/20 19:15 Pulse Oximetry 99 06/11/20 07:40 Oxygen Delivery Method Room Air 06/11/20 07:40 Oxygen Flow Rate 0 06/11/20 07:40 Pain Level 7 06/11/20 07:40 Intake & Output 06/10/20 06/10/20 06/11/20 11:59 23:59 11:59 Intake Total 1400 / 1400 Output Total 420 / 420 Balance 1400 / 1400 -420 / -420 Weight 86.183 kg Intake: IV 1400 / 1400 Output: Urine 420 / 420 Other: Urine Color Light Opal Urine Appearance Clear Urine Odor None Voiding Methods Urinal Data Completed and Pending Labs on day of discharge: Labs from last 24 hours 06/11/20 06/10/20 06/10/20 06:35 20:30 20:10 WBC 1.59 L* RBC 2.40 L Hgb 7.6 L Hct 21.9 L MCV 91.3 MCH 31.7 MCHC 34.7 RDW 12.5 Plt Count 224 MPV 8.8 Immature Gran % 0.0 Neutrophils % 51.0 Lymphocytes % 27.0 Monocytes % 20.8 Eosinophils % 0.6 Basophils % 0.6 Nucleated RBC % 0 Absolute Neutrophils 0.81 L Absolute Lymphocytes 0.43 L Absolute Monocytes 0.33 Absolute Eosinophils 0.01 Absolute Basophils 0.01 RBC Morphology Microcytosis PT 10.7 INR 1.1 APTT 23.9 VBG Lactate Sodium Potassium Chloride Carbon Dioxide Anion Gap BUN Creatinine Estimated GFR/1.73 m2 Glucose Calcium Magnesium Total Bilirubin Conjugated Bilirubin AST ALT Alkaline Phosphatase Total Protein Albumin Urine Color Yellow Urine Clarity Clear Urine pH 7.5 Ur Specific [place] 1.020 Urine Protein 30 H Urine Ketones Negative Urine Blood Negative Urine Nitrite Negative Urine Bilirubin Negative Urine Urobilinogen 0.2 Ur Leukocyte Esterase Negative Urine RBC 0-2 Urine WBC 0-2 Ur Epithelial Cells Rare Urine Crystals Negative Urine Bacteria Negative Urine Casts Negative Urine Mucus Negative Urine Other Negative Ur Culture Indicated? C&s done as ordered Urine Glucose Negative COVID-19 Source SARS-CoV-2 (PCR) 06/10/20 06/10/20 06/10/20 20:10 20:10 20:10 WBC 1.70 L* RBC 2.55 L Hgb 8.1 L Hct 23.2 L MCV 91.0 MCH 31.8 MCHC 34.9 RDW 12.3 Plt Count 251 MPV 9.0 Immature Gran % 0.6 Neutrophils % 54.7 Lymphocytes % 24.7 Monocytes % 18.8 Eosinophils % 0.6 Basophils % 0.6 Nucleated RBC % 0 Absolute Neutrophils 0.93 L Absolute Lymphocytes 0.42 L Absolute Monocytes 0.32 Absolute Eosinophils 0.01 Absolute Basophils 0.01 RBC Morphology See below Microcytosis 1+ PT INR APTT VBG Lactate 0.6 Sodium 141 Potassium 3.9 Chloride 102 Carbon Dioxide 29.8 Anion Gap 9.2 BUN 29 H Creatinine 1.1 Estimated GFR/1.73 m2 >= 60.00 Glucose 104 Calcium 9.0 Magnesium 1.7 L Total Bilirubin 0.4 Conjugated Bilirubin 0.1 AST 13 L ALT 17 Alkaline Phosphatase 69 Total Protein 7.1 Albumin 3.2 L Urine Color Urine Clarity Urine pH Ur Specific [place] Urine Protein Urine Ketones Urine Blood Urine Nitrite Urine Bilirubin Urine Urobilinogen Ur Leukocyte Esterase Urine RBC Urine WBC Ur Epithelial Cells Urine Crystals Urine Bacteria Urine Casts Urine Mucus Urine Other Ur Culture Indicated? Urine Glucose COVID-19 Source SARS-CoV-2 (PCR) 06/10/20 19:55 WBC RBC Hgb Hct MCV MCH MCHC RDW Plt Count MPV Immature Gran % Neutrophils % Lymphocytes % Monocytes % Eosinophils % Basophils % Nucleated RBC % Absolute Neutrophils Absolute Lymphocytes Absolute Monocytes Absolute Eosinophils Absolute Basophils RBC Morphology Microcytosis PT INR APTT VBG Lactate Sodium Potassium Chloride Carbon Dioxide Anion Gap BUN Creatinine Estimated GFR/1.73 m2 Glucose Calcium Magnesium Total Bilirubin Conjugated Bilirubin AST ALT Alkaline Phosphatase Total Protein Albumin Urine Color Urine Clarity Urine pH Ur Specific [place] Urine Protein Urine Ketones Urine Blood Urine Nitrite Urine Bilirubin Urine Urobilinogen Ur Leukocyte Esterase Urine RBC Urine WBC Ur Epithelial Cells Urine Crystals Urine Bacteria Urine Casts Urine Mucus Urine Other Ur Culture Indicated? Urine Glucose COVID-19 Source Nasal/nares SARS-CoV-2 (PCR) Negative 06/10/20 20:10 Blood Blood Culture - Pending 06/10/20 20:30 Urine - Clean Catch Urine Culture - Pending 06/10/20 20:10 Blood Blood Culture - Pending Preliminary micro results at discharge 06/10/20 20:10 Blood Culture - Pending Blood 06/10/20 20:30 Urine Culture - Pending Urine - Clean Catch 06/10/20 20:10 Blood Culture - Pending Blood PFSH Family History Mother Colon cancer Diabetes Father No problems noted. Maternal Uncle Colon cancer Social History Smoking/Tobacco Use Status: Former Tobacco Use Smoking risk assessment performed?: Yes Alcohol Intake: never Drug use: Occasionally Substance use type: marijuana Details: last use 4 weeks ago Do you feel safe at home: Yes Do you feel safe in your relationship?: Yes
[2020-06-11 11:27] VITALS: TEMP 36.6
[2020-06-11] MEDS: Normal Saline 1,000 ML 80 ML IV (12:37)
[2020-06-11] MEDS: Normal Saline Flush 10 ML SYR IVP (14:00)
[2020-06-11] MEDS: Heparin 500 UNITS/5 ML SYRINGE IVP (14:01)
--- NOTE | 2020-06-11 16:51 | CMDISCH_ITS ---
- If Service Date Differs Date of service: 06/11/20 Time of Service: 16:51 LACE Index Scoring Tool - Questions: Length of Stay (in days): 1 Acuity (Admit via E.D.?): Yes Comorbidities: Any Tumor E.D. Visits: 1 - Answers: Total Score: 7 Risk of Readmission: Low Risk Care Management Discharge Reason for Hospitalization: febrile neutropenia Discharge Plan: Vasyl will be discharged home with no new services. He will follow up with his Oncology Team as well as his PCP and discharge plan of care. Vasyl will transport with family vis private vehicle. Patient/Family Education Needs: Review of discharge instructions, follow up pl an, limitations, Ask Me Three
== END 2020-06-11 14:28 | disposition home or self-care (01) ==
LOC: ER 23:32 → MS 06-11 00:25
PROVIDERS: Emergency Medicine; Admitting Provider General Practice; Emergency Provider Emergency Medicine; PCP Internal Medicine; Visit Provider General Practice
DX: D70.9 Neutropenia, unspecified (principal); C09.9 Malignant neoplasm of tonsil, unspecified; Z79.899 Other long term (current) drug therapy; R50.81 Fever presenting with conditions classified elsewhere; Z20.822 Contact with and (suspected) exposure to COVID-19; Z87.891 Personal history of nicotine dependence
CPT/HCPCS: 36415; 70491; 74177; 80053; 87040; 87635; 96361; 96365; 96367; 96375; 99222; 99285; 71260; 81003; 81015; 82248; 83605; 83735; 85025; 85610; 85730; 87086; 99217; 99219; G0378; J0131; J0295; J0744; J2405; J3490

== ENCOUNTER 2020-06-18 02:35 | Outpatient (RCR) | payer MEDICAID, SELFPAY ==
[2020-06-04 09:33] LABS: Absolute Basophil Count 0.01 10^3/uL (0.0-0.2); Absolute Eosinophil Count 0.01 10^3/uL (0.0-0.7); Absolute Lymphocyte Count 0.43 10^3/uL (1.2-3.4); Absolute Monocyte Count 0.25 10^3/uL (0.1-0.8); Absolute Neutrophil Count 1.97 10^3/uL (1.2-6.7); Basophils % 0.4; Eosinophils % 0.4; HCT 27.7 % (40.0-50.0); HGB 9.6 g/dL (13.5-17.5); Lymphocytes % 16.1; MCH 31.1 pg (27.0-33.0); MCHC 34.7 % (32.0-36.0); MCV 89.6 fL (80-95); MPV 8.9 fL (8.0-11.0); Monocytes % 9.4; Neutrophils % 73.7; Nucleated RBC 0 %; Platelet Count 167 10^3/uL (130-400); RBC 3.09 10^6/uL (4.36-5.78); RDW 11.9 % (11.8-14.1); RDW-SD 37.1 fL; WBC 2.67 10^3/uL (4.4-10.8)
[2020-06-04 09:45] LABS: ALT 23 U/L (16-63); AST 11 U/L (15-37); Albumin 3.5 g/dL (3.4-5.0); Alkaline Phosphatase 70 U/L (46-116); Anion Gap 6.9 mmol/L (3-11); BUN 31 mg/dL (7-18); Bilirubin, Total 0.3 mg/dL (0.2-1.0); CO2 31.1 mmol/L (21.0-32.0); CREATININE 1.2 mg/dL (0.70-1.30); Chloride 102 mmol/L (98-107); Glucose 130 mg/dL (74-106); Magnesium 1.6 mg/dL (1.8-2.4); Potassium 4.2 mmol/L (3.5-5.1); Sodium 140 mmol/L (136-145); Total Protein 7.4 g/dL (6.4-8.2)
[2020-06-04] MEDS: Normal Saline Flush 10 ML SYR IVP (10:14)
--- NOTE | 2020-06-11 16:05 | CHAPLAIN ---
Miguel Angel was resting in bed when I visited this morning. He told me he was planning to leave in hour hours's time. I explained my role and offered support.
[2020-06-18 08:59] LABS: Abs Immature Grans 0.04 10^3/uL (0.0-0.06); Absolute Basophil Count 0.02 10^3/uL (0.0-0.2); Absolute Eosinophil Count 0.02 10^3/uL (0.0-0.7); Absolute Lymphocyte Count 0.38 10^3/uL (1.2-3.4); Absolute Monocyte Count 0.49 10^3/uL (0.1-0.8); Absolute Neutrophil Count 2.38 10^3/uL (1.2-6.7); Basophils % 0.6; Eosinophils % 0.6; HCT 27.4 % (40.0-50.0); HGB 9.5 g/dL (13.5-17.5); Immature Grans % 1.2; Lymphocytes % 11.4; MCH 31.3 pg (27.0-33.0); MCHC 34.7 % (32.0-36.0); MCV 90.1 fL (80-95); MPV 8.6 fL (8.0-11.0); Monocytes % 14.7; Neutrophils % 71.5; Nucleated RBC 0 %; Platelet Count 416 10^3/uL (130-400); RBC 3.04 10^6/uL (4.36-5.78); RDW 14.5 % (11.8-14.1); RDW-SD 44.8 fL; WBC 3.33 10^3/uL (4.4-10.8)
[2020-06-18] MEDS: Normal Saline Flush 10 ML SYR IVP (09:03)
[2020-06-18] MEDS: Heparin 500 UNITS/5 ML SYRINGE IV (09:03)
[2020-06-18 09:16] LABS: ALT 24 U/L (16-63); AST 15 U/L (15-37); Albumin 3.3 g/dL (3.4-5.0); Alkaline Phosphatase 87 U/L (46-116); BUN 20 mg/dL (7-18); Bilirubin, Total 0.3 mg/dL (0.2-1.0); CREATININE 1.5 mg/dL (0.70-1.30); Calcium 9.3 mg/dL (8.5-10.1); Chloride 100 mmol/L (98-107); Estimated GFR 48.59 (mL/min/1.73m2); Glucose 126 mg/dL (74-106); Magnesium 1.6 mg/dL (1.8-2.4); Potassium 3.7 mmol/L (3.5-5.1); Sodium 139 mmol/L (136-145); Total Protein 7.5 g/dL (6.4-8.2)
== END 2020-06-29 23:59 | disposition home or self-care (01) ==
LOC: INF 02:35
PROVIDERS: PCP Internal Medicine; Visit Provider Internal Medicine Hematology & Oncology
DX: C09.9 Malignant neoplasm of tonsil, unspecified (principal)
CPT/HCPCS: 36591; 80053; 83735; 85025

== ENCOUNTER 2020-07-16 03:28 | Outpatient (CLI) | payer MEDICAID, SELFPAY ==
[2020-07-16 12:19] LABS: Abs Immature Grans 0.01 10^3/uL (0.0-0.06); Absolute Basophil Count 0.02 10^3/uL (0.0-0.2); Absolute Lymphocyte Count 0.96 10^3/uL (1.2-3.4); Absolute Monocyte Count 0.65 10^3/uL (0.1-0.8); Absolute Neutrophil Count 3.35 10^3/uL (1.2-6.7); Basophils % 0.4; Eosinophils % 3.9; HCT 30.8 % (40.0-50.0); HGB 10.4 g/dL (13.5-17.5); Immature Grans % 0.2; Lymphocytes % 18.5; MCHC 33.8 % (32.0-36.0); MCV 91.7 fL (80-95); MPV 8.8 fL (8.0-11.0); Monocytes % 12.5; Neutrophils % 64.5; Nucleated RBC 0 %; Platelet Count 242 10^3/uL (130-400); RBC 3.36 10^6/uL (4.36-5.78); RDW 14.2 % (11.8-14.1); RDW-SD 47.8 fL; WBC 5.19 10^3/uL (4.4-10.8)
[2020-07-16 12:37] LABS: ALT 20 U/L (16-63); AST 18 U/L (15-37); Albumin 3.7 g/dL (3.4-5.0); Alkaline Phosphatase 76 U/L (46-116); Anion Gap 6.2 mmol/L (3-11); BUN 30 mg/dL (7-18); Bilirubin, Total 0.4 mg/dL (0.2-1.0); CO2 31.8 mmol/L (21.0-32.0); CREATININE 1.6 mg/dL (0.70-1.30); Calcium 9.2 mg/dL (8.5-10.1); Chloride 101 mmol/L (98-107); Glucose 93 mg/dL (74-106); Potassium 3.6 mmol/L (3.5-5.1); Sodium 139 mmol/L (136-145); Total Protein 7.6 g/dL (6.4-8.2)
== END 2020-07-16 03:29 | disposition home or self-care (01) ==
LOC: LBO 03:28
PROVIDERS: PCP Internal Medicine; Visit Provider Internal Medicine Hematology & Oncology
DX: C09.9 Malignant neoplasm of tonsil, unspecified (principal)
CPT/HCPCS: 36415; 80053; 85025

== ENCOUNTER 2020-07-23 00:46 | Outpatient (CLI) | payer MEDICAID, SELFPAY ==
--- NOTE | 2020-07-23 14:49 | DI.RAD_ITS ---
Exam(s) RF MODIFIED SPEECH BA SWALLOW TECHNIQUE: Modified barium swallow was performed in conjunction with speech pathology. CONTRAST MATERIAL: Barium impregnated fluid and materials were administered.. COMPARISON: No exams were available for comparison FINDINGS: Note that this is not a dedicated esophagram, distal esophagus not evaluated. There is no evidence of aspiration. See speech pathologist report IMPRESSION: No evidence of aspiration. See speech pathologist report RADIATION DOSE DELIVERED: eusebio Cassidy=4.7 mGy
--- NOTE | 2020-07-23 14:49 | ST.MBS ---
Date of Service Date of service: 07/23/20 Time of Service: 14:49 Modified Barium Swallow Study Findings: Videofluoroscopic Swallowing Evaluation / Modified Barium Swallow Study (VFSE/MBSS)? Speech Language Pathology Report HPI:? 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 PMHx: HTN, hypomagnesemia, dehydration, dysphagia Previous Imaging: N/A SUBJECTIVE: Patient reports following symptoms: xerostomia, po intake is improving and less odynophagia recently, does endorse overt s/sx aspiration and globus with pills and/or solid foods at times which does seem to be improving, and need for additional secondary swallows/difficulties with efficiency. Reports continued ''stopping sensation with regard to swallow initiation at times MDADI: (As of 07/11/20) Global Score: 2 Composite Score: 67.4 OBJECTIVE: Videofluoroscopic Swallow Evaluation (VFSE/MBSS) was conducted in the lateral and [id number] projections by Speech-Language Pathologist, in collaboration with Radiologist, to evaluate oropharyngeal swallow function. Anatomic view under fluoroscopy: WFL Standard [place] coin visible along posterior cervical spine, used for calibration purposes during analysis PO barium contrast trials:? Oral barium water soluble contrast was administered as follows:? IDDSI Level 0 Varibar thin liquid (40% w/v) IDDSI Level 2 Varibar nectar thick/mildly thick liquid (40% w/v) IDDSI Level 3 Varibar thin honey/liquidised/moderately-thick (40% w/v) IDDSI Level 4 Varibar pudding/pureed/extremely thick (40% w/v) IDDSI Level 7 Regular Solid: 1/2 justin cracker coated in 3 mL Varibar pudding; 13 mm barium tablet PHYSIOLOGIC FINDINGS Oral Phase 1 Lip Closure:?0 no labial escape 2 Tongue Control:?0 cohesive bolus between tongue to palatal seal 3 Bolus Preparation/Mastication:?0- Timely and efficient chewing/mashing 4 Bolus Transport/Lingual Motion:?0- Brisk tongue motion 5 Oral residue:?1- Trace residue lining oral structures Location: palate, tongue 6 Initiation of pharyngeal swallow:?3- Bolus head in pyriform sinus Pharyngeal Phase 7 Velar Elevation:?0- No bolus between soft palate and pharyngeal wall 8 Laryngeal Elevation:??1- Partial superior movement of thyroid cartilage with partial approximation of arytenoids to epiglottic petiole 9 Anterior Hyoid Excursion:?0- Complete anterior movement 10 Epiglottic Movement:??1- Partial? inversion 11 Laryngeal Vestibule Closure:?1- Incomplete; narrow column of air/contrast in laryngeal vestibule Penetration occurs during initial swallow onset from current bolus 12 Pharyngeal Stripping Wave:?1- Present; diminished 13 Pharyngeal Contraction:?1- Incomplete; pseudodiverticulae / very slight R sided weakness 14 PES/UES Opening:?0- Complete distension and complete duration; no obstruction of flow 15 Tongue Base Retraction:?1- Trace column of contrast between tongue base and posterior pharyngeal wall 16 Pharyngeal residue:??2- Collection of residue within or on pharyngeal structures / patient is sensate to residue Location: Valleculae, Pyriform sinuses [place] Pharyngeal Residue Severity Rating Scale (YPRS) (Suzie et al, 2015) Vallecula Residue Severity III Mild 5-25% Epiglottic ligament visible? Pyriform Sinus Residue Severity III Mild 5-25% Up wall to quarter full? Esophageal Phase? 17 Esophageal Clearance Upright Position: 1- Esophageal retention (slight), cleared by secondary swallow; patient denies discomfort NOTE:? This study was performed for interpretation only of the oropharyngeal and pharyngoesophageal domains of swallowing.? It is not intended to diagnose any other radiologic abnormalities or substitute for a formal esophagram study. Overall 8-Point Penetration-Aspiration Scale (PAS) (Rosengailk, et al, 1996) 1 - No material enters the airway. 2 - Material enters the airway, remains above the vocal folds, and is ejected? from the airway. 3 - Material enters the airway, remains above the vocal folds, and is not? ejected from the airway. 4 - Material enters the airway, contacts the vocal folds, and is ejected from the? airway. 5 - Material enters the airway, contacts the vocal folds, and is not ejected from? the airway. 6 - Material enters the airway, passes below the vocal folds, and is ejected into? the larynx or out of the airway. 7 - Material enters the airway, passes below the vocal folds, and is not ejected? from the trachea despite effort. 8 - Material enters the airway, passes below the vocal folds, and no effort is? made to eject. Clinical Indicator(s) of Prandial/Postprandial Aspiration:? N/A DIGEST Scale Rating? (Shanelle, et al, 1999) DIGEST Score:? Safety Grade 0 / Efficiency Grade 1 = 1 - Overall Mild Pharyngeal Impairment (0=No Impairment, 1=Mild, 2=Moderate, 3=Severe, 4=Life Threatening) The Dynamic Imaging Grade of Swallowing Toxicity (DIGEST) Score represents a set of structured criteria primarily validated for head and neck cancer patients to grade the interaction of safety, efficiency, and overall impairment of the pharyngeal swallow, meant to assist in prioritization of targets for dysphagia treatment planning.? (Patrick, et al. Cancer. 2017;123(1):62-70)? Note:? - Above score represents swallowing events without application of compensatory techniques Trialed Compensatory Swallow Strategies & Outcome:? Maneuvers Secondary saliva swallow x1 successful in clearing remaining residue Bolus Modifications Delivery/Alternating Consistencies - Wash with thin successful in clearing remaining residue Delivery/Via Straw - no notable change(s) Reduced Volume - successful in reducing amount of residue Dysphagia Outcome and Severity Scale (LOS) LEVEL 6 - Full PO: normal diet - Within functional limits/modified independence IMPRESSIONS: Swallow safety is preserved; swallow efficiency is slightly impaired. Mild pharyngeal dysphagia, likely acute, presentation likely due to post-RT effects in combination with disuse atrophy; dysphagia is characterized primarily by delayed initiation of pharyngeal swallow (initiated at pyriform sinus), which is complicated by mild weakness/incoordination of the following: Laryngeal elevation, reduced epiglottic inversion/delay, incomplete laryngeal vestibule closure, mildly reduced pharyngeal stripping wave, incomplete pharyngeal contraction with very slight right sided weakness, and reduced tongue base retraction; these deficits result in penetration of thin liquids during sequential swallow task x1 and mild pharyngeal stasis in vallecular space and piriform sinus after the swallow; patient is sensate to pharyngeal residue, which elicits secondary volitional swallow and does clear residue entirely. Patient appears to be at low risk for potential aspiration PNA, pulmonary compromise and low for malnutrition, low risk for dehydration.? Neither diet modification or enteral nutrition are indicated at this time given results from today's study. Swallow prognosis is good given age, mobility, and pending patient/caregiver training in risk management as outlined. Patient appears to be a good candidate for behavioral swallow rehabilitation. PLAN: Diet recommendation:? IDDSI Level 7-Regular/Easy to Chew Solids; 0-Thin Liquids Please see further details at www.iddsi.org Diet texture modification is per patient's preference; please adjust diet textures at patient's discretion & collaboration with care team. Risk Management:? Behavioral reflux precautions, including upright position during + 90 mins after meals. Alternate solids/liquids as able Secondary swallow and/or thin liquid wash to encourage clearance of pharyngeal stasis/residue? Control risk factors for aspiration pneumonia via (a) thorough oral hygiene & (b) maintaining physical mobility as tolerated Specialist referrals: Continue with RD consultation as scheduled Ancillary tests: N/A Therapy:? Recommend subsequent outpatient session with BLANKBOOK STITCHING MACHINE OPERATOR through [facility] to review results of today's exam and develop treatment plan as appropriate.? May consider the following:? - Maneuvers: Effortful swallow - Exercise: CTAR, Shaker - Technique(s): Sensory modifications/Carbonation, Flavor, Sour bolus; Suck-Swallow technique Goal: TBD pending patient/caregiver interview Follow-up exam: N/A Thank you for allowing me to take part in this patient's care. Please feel free to contact me with any questions/concerns. Xuan Morgan MA CCC-BLANKBOOK STITCHING MACHINE OPERATOR Speech Language Pathologist? [phone] Coding CPT Codes MOTION FLUOROSCOPY/SWALLOW - [id number] ([id number])
[2020-07-23] MEDS: Barium Sulfate Oral Paste 40% W/V 230 ML TUBE PO (14:51)
[2020-07-23] MEDS: Barium Sulfate 40% W/V 240 ML BTL PO (14:52)
[2020-07-23] MEDS: Barium Sulfate 81% w/w for Oral Suspension 148 GM BTL PO (14:53)
[2020-07-23] MEDS: Barium Sulfate 40% W/V 1500 CPS 250 ML BTL PO (14:56)
== END 2020-07-23 01:06 ==
PROVIDERS: PCP Internal Medicine; Visit Provider Speech-Language Pathologist
DX: I10 Essential (primary) hypertension (principal); E83.42 Hypomagnesemia; R13.13 Dysphagia, pharyngeal phase; C09.9 Malignant neoplasm of tonsil, unspecified; Z92.3 Personal history of irradiation
CPT/HCPCS: 74221

== ENCOUNTER 2021-01-14 02:47 | Outpatient (RCR) | payer MEDICAID, SELFPAY ==
[2021-01-14 12:28] LABS: Abs Immature Grans 0.01 10^3/uL (0.0-0.06); Absolute Basophil Count 0.04 10^3/uL (0.0-0.2); Absolute Eosinophil Count 0.16 10^3/uL (0.0-0.7); Absolute Lymphocyte Count 1.46 10^3/uL (1.2-3.4); Absolute Monocyte Count 0.44 10^3/uL (0.1-0.8); Absolute Neutrophil Count 3.15 10^3/uL (1.2-6.7); Basophils % 0.8; HCT 38.1 % (40.0-50.0); HGB 12.8 g/dL (13.5-17.5); Immature Grans % 0.2; Lymphocytes % 27.8; MCH 30.9 pg (27.0-33.0); MCHC 33.6 % (32.0-36.0); MPV 9.4 fL (8.0-11.0); Monocytes % 8.4; Neutrophils % 59.8; Nucleated RBC 0 %; Platelet Count 266 10^3/uL (130-400); RBC 4.14 10^6/uL (4.36-5.78); RDW 12.3 % (11.8-14.1); WBC 5.26 10^3/uL (4.4-10.8)
[2021-01-14 13:10] LABS: BUN 20 mg/dL (7-18); CREATININE 1.2 mg/dL (0.70-1.30); Glucose 87 mg/dL (74-106)
[2021-01-14 13:11] LABS: ALT 22 U/L (16-63); AST 20 U/L (15-37); Alkaline Phosphatase 71 U/L (46-116); Anion Gap 6.6 mmol/L (3-11); Bilirubin, Total 0.6 mg/dL (0.2-1.0); CO2 31.4 mmol/L (21.0-32.0); Chloride 106 mmol/L (98-107); Magnesium 1.9 mg/dL (1.8-2.4); Potassium 4.1 mmol/L (3.5-5.1); Sodium 144 mmol/L (136-145); TSH 1.15 uIU/mL (0.36-3.74); Total Protein 7.6 g/dL (6.4-8.2)
== END 2021-01-29 23:59 | disposition home or self-care (01) ==
LOC: INF 02:47
PROVIDERS: PCP Internal Medicine; Visit Provider Internal Medicine Hematology & Oncology
DX: E83.42 Hypomagnesemia (principal); C09.9 Malignant neoplasm of tonsil, unspecified
CPT/HCPCS: 36415; 80053; 83735; 84443; 85025

== ENCOUNTER → 2021-08-15 02:33 | Outpatient (CLI) | payer MEDICAID, SELFPAY ==
--- NOTE | 2021-08-15 08:00 | DI.CT_ITS ---
Exam(s) CT CHEST WO EXAM: CT CHEST WO CLINICAL HISTORY: S/P CHEMORADIOTHERAPY FOR TONSIL CA,C09.9,ASSESS TREATMENT RESPONSE. TECHNIQUE: Multi planar reconstructions were performed. CONTRAST MATERIAL: None COMPARISON: CR CHEST 2 VIEWS PA,LAT from 04/18/[address] NECK CHEST ABD PEL W from 06/10/2020 FINDINGS: CHEST: LUNGS: There are no infiltrates nor pulmonary nodules. No pleural effusions. No significant focal f indings in the trachea and mainstem bronchi. There is no bronchiectasis. MEDIASTINUM: There is no obvious hilar nor mediastinal adenopathy. Visualized thyroid unremarkable.Th e wall of the esophagus is again noted be mildly thickened. CARDIAC: Heart size is normal. There is no pericardial effusion.Caliber of the thoracic aorta is wit hin normal limits. VISUALIZED UPPER ABDOMEN:Left adrenal thickening again noted. OSSEOUS: No significant osseous lesions.. IMPRESSION: 1. No evidence of metastatic nodules nor other pulmonary findings. No pleural effusions nor intratho racic adenopathy. 2. Again noted is an element of circumferential thickening of the esophageal wall. No true hiatal he rnia evident. If clinically indicated this could be further study with endoscopic examination RADIATION DOSE DELIVERED: 485.62mGy.cm Total DLP DATA REPOSITORY: All CT scans at this facility are submitted to the National Radiology Data Registry (NRDR) Dose Index Registry (DIR) with the [employer] (A[employer]). RADIATION OPTIMIZATION: All CT scans at this facility use at least one of these dose optimization te chniques: automated exposure control; mA and/or kV adjustment per patient size (includes targeted exa ms where dose is matched to clinical indication); or iterative reconstruction.
== END ==
PROVIDERS: PCP Internal Medicine; Visit Provider Preventive Medicine Undersea and Hyperbaric Medicine
DX: K22.89 Other specified disease of esophagus (principal); C09.9 Malignant neoplasm of tonsil, unspecified; Z92.21 Personal history of antineoplastic chemotherapy
CPT/HCPCS: 71250

== ENCOUNTER → 2021-09-17 00:38 | Outpatient (CLI) | payer MEDICAID, SELFPAY ==
--- NOTE | 2021-09-17 | DI.RAD_ITS ---
Exam(s) XR SHOULDER RT COMPLETE 2+V EXAM: XR SHOULDER RT COMPLETE 2+V CLINICAL HISTORY: RT SHOULDER PAIN, M25.511. TECHNIQUE: 2D digital imaging was performed. COMPARISON: No exams were available for comparison FINDINGS: Four views: No evidence of fracture or dislocation. No joint space narrowing. No osteophytes. No soft tissue c alcifications. Subacromial space is not appear diminished. Bone density normal. No osseous lesions. AC joint unremarkable. IMPRESSION: No significant radiographic findings DATA REPOSITORY: RADIATION DOSE DELIVERED:
== END ==
PROVIDERS: PCP Internal Medicine; Visit Provider Family Medicine
DX: M25.511 Pain in right shoulder (principal)
CPT/HCPCS: 73030

== ENCOUNTER 2021-10-30 09:15 | Outpatient (CLI) | payer MEDICAID, SELFPAY ==
[2021-10-30 11:19] LABS: CREATININE 1.2 mg/dL (0.70-1.30); Estimated GFR 70.53 (mL/min/1.73m2); TSH 1.65 uIU/mL (0.36-3.74)
== END 2021-10-30 09:16 | disposition home or self-care (01) ==
LOC: LBO 09:15
PROVIDERS: PCP Internal Medicine; Visit Provider Preventive Medicine Undersea and Hyperbaric Medicine
DX: I10 Essential (primary) hypertension (principal); C09.9 Malignant neoplasm of tonsil, unspecified
CPT/HCPCS: 36415; 82565; 84443

== ENCOUNTER 2021-11-25 09:08 | Day surgery (SDC) | payer MEDICAID, SELFPAY ==
--- NOTE | 2021-11-25 06:45 | W.COLOREPORT ---
Colonoscopy Report Date of procedure: 11/25/21 Pre-op diagnosis general: Colon Cancer Screening Post-op diagnosis procedure note: other (polyps) Procedure: Colonoscopy with polypectomy Surgeon: Arelis Howell Anesthesia Type: General:No Airway Estimated blood loss (mL): 3 Pathology: other (ascending, descending and rectal polyp) Complications: None Disposition: same day Indications: The patient? is a pleasant? 56-year-old male who is here to discuss his first screening colonoscopy. ? He has no first-degree relative with colon cancer.? There is a family history in a maternal grandfather.? He denies any changes in bowel habits, melena, hematochezia, unintentional weight loss or family history of colon cancer.? The procedure and risks were discussed.? The prep was reviewed in detail.? Risks, benefits and complications have been reviewed. Complications include but are not limited to bleeding, pain, perforation, missed small lesion/polyp, sore throat, aspiration and adverse reaction to the medications. Questions were entertained and answered to their satisfaction and they wished to proceed. No guarantees were given or implied. Prep: Miralax/Dulcolax Procedure Start Time: 10:29 Procedure End Time: 10:50 Retraction Time: 10 minutes Findings: 3 polyps Procedure Description: After informed consent was obtained the patient was taken to the procedure room and placed in a left decubitous position. Monitors were applied and a time out was done. The patients name, date of , procedure, allergies to medications and metal in their body was reviewed. The patient was then sedated. Once sedated and comfortable a rectal exam was done. External exam was normal. Internal exam revealed a normal sphincter tone and no palpable masses. Prostate was enlarged but smooth. The scope was then introduced and retro-flexed. No internal hemorrhoids, polyps or masses were identified on retro-flexion. The scope was then advanced to the cecum without difficulty. The ileocecal vlave and appendiceal orifice were identified. The prep was adequate. The scope was then slowly retracted over 10 minutes back into the rectum. Polyps were removed with cold forceps in the ascending colon and rectum and with a hot snare in the descending colon. There was no diverticulosis noted. The scope was removed and the patient was woken up and taken back to Same day surgery in stable condition. The patient tolerated the procedure well and there were no immediate complications.
--- NOTE | 2021-11-25 06:46 | W.PM.DSUDISC ---
Discharge Plan Disposition Patient Disposition: HOME Condition: Good Discharge Details Reason For Visit: Colonoscopy Attending Provider: Arelis Howell Primary Care Provider: Galindo Mclaughlin Home Meds and New Rx's Prescriptions: Discontinued bisacodyl [Dulcolax (bisacodyl)] 5 mg tablet,delayed release (DR/EC) 5 mg PO ONCE Qty: 4 0RF Rx Instructions: Take according to provider's instructions for colonoscopy prep. polyethylene glycol 3350 17 gram/dose powder 17 g PO ONCE Qty: 238 0RF Rx Instructions: To be taken as directed by prescriber's office for colonoscopy prep. Discharge Instructions Additional Instructions: Findings: 3 polyps Follow up: most likely 5 years Please call if you develop: fevers >101.5 Nausea or Vomiting Abdominal pain that is not transient Rectal bleeding that is more then a tbsp A hard abdomen and inability to pass gas DAY SURGERY UNIT POST ENDOSCOPY INSTRUCTIONS Instructions for everyone who is given Anesthesia: For your safety, please do the following for the next 24 Hours: a. Do not drive or operate dangerous equipment b. Do not drink alcohol beverages or use any recreational drugs for the first 24 hours or while taking pain medications. The medications in your body may have a reaction that can be dangerous. c. Do not make any important decisions or sign any important papers 1. Generally there are no restrictions on your activity after a day or so has gone by, but you may feel a bit fatigued for a few days. 2. After you arrive home you may have a light meal and return to a normal diet as you can tolerate it without feeling sick to your stomach. 3. After surgery, you may feel pain or discomfort. This should be only transient, but if it persists please contact your doctor. 4. If there are any questions regarding the findings of your procedure, please feel free to contact your doctor. 6. If you are unable to contact your doctor with a problem, contact the hospital at [phone]. 7. Continue all your regular medications unless directed otherwise. I understand the above instructions and have no questions. Signature of Patient or Responsible Adult Escort Date/Time Name of Responsible Adult Escort Signature of Nurse Date/Time Activity:: Activity as Tolerated Diet:: As Tolerated Discharge Orders Discharge Orders: Discharge Order (Routine); Ordered 11/25/21 Ordered By: Arelis Howell
[2021-11-25 09:24] VITALS: BP 130/92; PULSE 95; RESP 18; TEMP 36.6; O2SAT 99
[2021-11-25] MEDS: Lactated Ringers 1,000 ML 80 ML IV (09:40)
--- NOTE | 2021-11-25 10:11 | W.ANESPRE ---
General Info Date of Service Date Performed: 11/25/21 Height: 5 ft 8 in Weight: 84.822 kg Body Mass Index (BMI): 28.4 Surgical Procedure: Operation Date: 11/25/21 11:20 Proposed Procedure Side Surgeon p Colonoscopy Arelis Howell MD Meds Allergies and Home Medications Allergies Allergy/AdvReac Type Severity Reaction Status Date / Time bupropion [From Wellbutrin] Allergy Unknown Verified 11/25/21 09:32 Home Medication Medication Instructions Recorded bisacodyl 5 mg tablet,delayed 5 mg PO ONCE #4 tabs 11/12/21 release (Dulcolax (bisacodyl)) polyethylene glycol 3350 17 17 g PO ONCE #238 grams 11/12/21 gram/dose oral powder Current Visit Medications: Current Medications Generic Name Dose Route Start Last Admin Trade Name Freq PRN Reason Stop Dose Admin Hyoscyamine Sulfate 0.125 mg 11/25/21 06:46 Hyoscyamine 0.125 Mg Sl/Oral/Chew SL DIRECTED PRN Ringer's Solution 1,000 mls @ 80 mls/hr 11/25/21 06:00 11/25/21 09:40 IV 12/22/21 23:59 80 mls/hr INFUSION YEVGENIY Administration IV Miscellaneous Supplies 1 each 11/25/21 06:00 Iv Access IV 12/22/21 23:59 DIRECTED YEVGENIY Ondansetron HCl 4 mg 11/25/21 06:46 Ondansetron 4 Mg/2 Ml Vial IVP Q4H PRN PRN Nausea / Vomiting Sodium Chloride 0 ml 11/25/21 06:00 Normal Saline Flush 10 Ml Syr IV 12/22/21 23:59 PRN PRN Sodium Chloride 0 ml 11/25/21 06:00 Normal Saline 10 Ml Vial IJ 12/22/21 23:59 DIRECTED PRN Sterile Water 0 ml 11/25/21 06:00 Water,Injection,Sterile 10 Ml Vial IJ 12/22/21 23:59 DIRECTED PRN PFSH Active Problems Active Problems: Problem Status Onset Code Screening for colon cancer Z12.11 Hypertension I10 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 not recieving tx for cancer, and no port in situ Tobacco Smoking/Tobacco Use Status: Former Tobacco Use Alcohol Alcohol Intake: current Alcohol intake frequency: a few times a month Alcohol type: hard liquor Substance Use Substance use: Daily Substance use type: marijuana Details: last smoked 11/24/211999 Vital Signs and Lab Results Vital Signs Most Recent Vital Signs in EMR: Most Recent Vital Signs Temp Pulse Resp BP Pulse Ox 36.6 C 95 H 18 130/92 H 99 11/25/21 09:24 11/25/21 09:24 11/25/21 09:24 11/25/21 09:24 11/25/21 09:24 Lab Results Blood Type / Crossmatch: No Data to Display Complete Blood Count: No Data to Display Complete Metabolic Panel: Creatinine 1.2 mg/dL (0.70-1.30) 10/30/21 09:20 Liver Function Panel: No Data to Display Coagulation Panel: No Data to Display Cardiac Panel: No Data to Display Arterial Blood Gas: No Data to Display Venous Blood Gas: No Data to Display Pancreas Panel: No Data to Display Thyroid Panel: Thyroid Stimulating Hormone (TSH) 1.65 uIU/mL (0.36-3.74) 10/30/21 09:20 Infectious Disease: No Data to Display Blood Cultures: No Data to Display Toxicology Panel: No Data to Display Anesthesia Assessment and Plan Anesthesia History Personal History: No History of Anesthesia Complications Family History: No Family History of Anesthesia Complications Exercise Tolerance Exercise Tolerance: Metabolic Equivalents>4 Pertinent Negatives Pertinent Negatives: No Symptoms of GERD, No Major Cardiovascular Symptoms or Complaints, No Major Pulmonary Symptoms or Complaints and No History of CVA/TIA Cardiac & Pulmonary Exam Cardiac Exam: Normal S1/S2 Heart Sounds Pulmonary Exam: Clear Bilateral Breath Sounds Implantable Cardiac Device Does patient have a Pacemaker or an ICD?: No Airway Exam Known Difficult Airway: No Mallampati Class: 1 Mouth Opening: Normal (> 3cm) Thyromental Distance: Greater than 3 cm Facial Hair: Full [place] Neck Range of Motion: Full ROM Neck Circumference: Normal Teeth Condition: Loose or Chipped (Multiple chipped teeth throughout) ASA Classification ASA Score: ASA 2 Emergency Case?: No NPO Status NPO Status: NPO Clears >2 hours, Solids >8 hours Anesthesia Plan Resuscitation Status: Full Code Anesthesia Technique: MAC Anesthesia Airway Planned: Natural Airway Monitors Used: Standard Monitors
[2021-11-25 10:31] VITALS: BMI 28.4
--- NOTE | 2021-11-25 10:31 | BOWEL_PTH ---
PATIENT: Vasyl Newberry III LOC: [facility] U#:[id number] AGE/SX: 56/M ROOM: RE11/25/[address]: Arelis Howell MD : [id number] BED: DIS: 11/25/2021 SPEC #: [id number] RECD: 11/25/21 12:29 STATUS: GARRETT REQ #: [id number] KATINA: 11/25/21 10:[address]: Arelis Howell DEPT: Surgical Specimen RECD BY: Blanca Lakhani ENTERED: 11/25/21 12:30 SP TYPE: Bowel OTHR DR: Galindo Mclaughlin Tissues: 1 - BIOPSY BOWEL 2 - BIOPSY BOWEL 3 - BIOPSY BOWEL Procedures: GROSS AND MICRO LEVEL 4 Comments: [id number]
[2021-11-25 11:04] VITALS: BP 147/80; PULSE 75; RESP 18; TEMP 36.3; O2SAT 98
[2021-11-25 11:25] VITALS: BP 141/90; PULSE 75; RESP 18; TEMP 36.3; O2SAT 99
--- NOTE | 2021-11-25 11:37 | W.ANESPOSTOP ---
Postoperative Evaluation Date, Time and Location Date Performed: 11/25/21 Time Performed: 11:37 Patient Location: Day Surgery Unit Vital Signs Most Recent Imported Vital Signs: Most Recent Vital Signs Temp Pulse Resp BP Pulse Ox 36.3 C L 75 18 141/90 H 99 11/25/21 11:25 11/25/21 11:25 11/25/21 11:25 11/25/21 11:25 11/25/21 11:25 Pain Score Most Recent Pain Score: Most Recent Pain Score Pain Level 0 11/25/21 11:25 Assessment Mental Status: Awake (Alert & Oriented to Patient Baseline) Airway and Respiratory Function: Patent airway with normal (patient baseline) respiratory exam Cardiovascular Function: Hemodynamically Stable Hydration Status: Adequately Hydrated Nausea & Vomiting: No Nausea or Vomiting Pain: Pain is tolerable per patient Peripheral Nerve Block: Patient did not receive a nerve block Postoperative Comments:: patient complaining of scratchiness to left eye. patient did thrash his head a bit upon awakening while the O2 facemask was still on. informed patient that it is most likely a small corneal abrasion, instructed that it should resolve in the next day and to let us know if it doesn't resolve.
== END 2021-11-25 11:42 | disposition home or self-care (01) ==
PROVIDERS: PCP Internal Medicine; Visit Provider Surgery
PROC: 0DJD8ZZ Inspection of Lower Intestinal Tract, Via Natural or Artificial Opening Endoscopic (ICD-10-PCS; CPT 45378; principal; 2021-11-25 11:15)
DX: Z12.11 Encounter for screening for malignant neoplasm of colon (principal); K63.5 Polyp of colon
CPT/HCPCS: 45385; 45380; 88305

== ENCOUNTER 2022-06-11 17:25 | Outpatient (REF) | payer MEDICAID, SELFPAY ==
[2022-06-11 15:16] LABS: Anion Gap 8.9 mmol/L (3-11); BUN 20 mg/dL (7-18); CO2 26.1 mmol/L (21.0-32.0); CREATININE 1.2 mg/dL (0.70-1.30); Calcium 9.2 mg/dL (8.5-10.1); Calculated LDL 146 mg/dL (<100); Chloride 105 mmol/L (98-107); Cholesterol 204 mg/dL (<200); Estimated GFR 70.53 (mL/min/1.73m2); Glucose 99 mg/dL (74-106); HDL Cholesterol 46 mg/dL (40-60); Potassium 4.5 mmol/L (3.5-5.1); Sodium 140 mmol/L (136-145); Triglyceride 62 mg/dL (<150)
[2022-06-12 01:00] LABS: PSA, Screening 1.2 ng/mL (<=3.5)
== END 2022-06-11 17:26 | disposition home or self-care (01) ==
LOC: NCHCN 17:25
PROVIDERS: PCP Family Medicine; Visit Provider Internal Medicine
DX: Z87.891 Personal history of nicotine dependence (principal); C09.9 Malignant neoplasm of tonsil, unspecified; Z13.220 Encounter for screening for lipoid disorders; Z12.5 Encounter for screening for malignant neoplasm of prostate; Z00.00 Encounter for general adult medical examination without abnormal findings
CPT/HCPCS: 80048; 80061; 84153

== ENCOUNTER 2023-02-16 03:25 | Outpatient (CLI) | payer MEDICAID, SELFPAY ==
[2023-02-16 14:39] LABS: TSH 1.72 uIU/mL (0.36-3.74)
== END 2023-02-16 03:26 | disposition home or self-care (01) ==
LOC: LBO 03:26
PROVIDERS: PCP Family Medicine; Visit Provider Nurse Practitioner
DX: C09.9 Malignant neoplasm of tonsil, unspecified (principal); Z92.29 Personal history of other drug therapy
CPT/HCPCS: 36415; 84443

== ENCOUNTER 2023-07-07 10:07 | Outpatient (REF) | payer MEDICAID, SELFPAY ==
[2023-07-07 14:47] LABS: Abs Immature Grans 0.02 10^3/uL (0.0-0.06); Absolute Basophil Count 0.07 10^3/uL (0.0-0.2); Absolute Lymphocyte Count 2.02 10^3/uL (1.2-3.4); Absolute Monocyte Count 0.42 10^3/uL (0.1-0.8); Absolute Neutrophil Count 3.89 10^3/uL (1.2-6.7); Basophils % 1.1 %; HCT 43.1 % (40.0-50.0); HGB 14.8 g/dL (13.5-17.5); Immature Grans % 0.3 %; Lymphocytes % 30.5 %; MCH 30.7 pg (27.0-33.0); MCHC 34.3 % (32.0-36.0); MCV 89 fL (80-95); MPV 10.2 fL (8.0-11.0); Monocytes % 6.3 %; Neutrophils % 58.8 %; Platelet Count 313 10^3/uL (130-400); RBC 4.82 10^6/uL (4.36-5.78); RDW 12.2 % (11.8-14.1); RDW-SD 40.1 fL; WBC 6.62 10^3/uL (4.4-10.8)
[2023-07-07 15:30] LABS: ALT 26 U/L (16-63); AST 24 U/L (15-37); Albumin 4.2 g/dL (3.4-5.0); Alkaline Phosphatase 77 U/L (46-116); Anion Gap 9.2 mmol/L (3-11); BUN 15 mg/dL (7-18); Bilirubin, Total 0.3 mg/dL (0.2-1.0); CO2 27.8 mmol/L (21.0-32.0); CREATININE 1.3 mg/dL (0.70-1.30); Calcium 9.4 mg/dL (8.5-10.1); Calculated LDL 137 mg/dL (<100); Chloride 107 mmol/L (98-107); Cholesterol 200 mg/dL (<200); Estimated GFR 63.68 (mL/min/1.73m2); Glucose 102 mg/dL (74-106); HDL Cholesterol 47 mg/dL (40-60); Potassium 4.9 mmol/L (3.5-5.1); Sodium 144 mmol/L (136-145); Total Protein 7.2 g/dL (6.4-8.2); Triglyceride 84 mg/dL (<150)
== END 2023-07-07 10:08 | disposition home or self-care (01) ==
LOC: NCHCN 10:07
PROVIDERS: PCP Family Medicine; Visit Provider Family Medicine
DX: Z00.00 Encounter for general adult medical examination without abnormal findings (principal)
CPT/HCPCS: 80053; 80061; 85025

== ENCOUNTER 2025-01-25 10:01 | Outpatient (REF) | payer MEDICAID, SELFPAY ==
[2025-01-25 15:07] LABS: ALT 26 U/L (10-49); AST 22 U/L (<34); Albumin 4.4 g/dL (3.2-5.0); Alkaline Phosphatase 93 U/L (46-116); Anion Gap 6 mmol/L (3-11); BUN 24 mg/dL (9-23); Bilirubin, Total 0.20 mg/dL (0.2-1.2); CO2 25.0 mmol/L (20.0-31.0); Calcium 9.5 mg/dL (8.3-10.6); Chloride 111 mmol/L (98-107); Cholesterol 207 mg/dL (<200); Glucose 103 mg/dL (74-106); HDL Cholesterol 47 mg/dL (>40); Potassium 4.7 mmol/L (3.5-5.1); Sodium 142 mmol/L (136-145); Total Protein 7.1 g/dL (5.7-8.2)
== END 2025-01-25 10:02 | disposition home or self-care (01) ==
LOC: NCHCN 10:01
PROVIDERS: PCP Family Medicine; Visit Provider Family Medicine
DX: Z13.220 Encounter for screening for lipoid disorders (principal); E66.9 Obesity, unspecified
CPT/HCPCS: 80053; 80061